=== PATIENT | male | born 1975 | race Caucasian/White ===

== ENCOUNTER → 2017-07-30 11:12 | Outpatient (CLI) | payer BC, SELFPAY ==
[2017-07-30 12:19] LABS: Absolute Lymphocyte Count 1.96 X10^3/ul (0.83-4.51); Absolute Neutrophil Count 6.6 X10^3/uL (2.0-7.7); Basophil# 0.05 X10^3/uL; Basophil% 0.5 % (0-1); Eosinophil# 0.17 X10^3/uL; Eosinophils% 1.8 % (0-5); Hematocrit 45.1 % (40-54); Hemoglobin 15.1 g/dl (13.0-16.5); Lymphocyte # 1.96 X10^3/ul (4.0); Lymphocyte % 20.8 % (19-41); Mean Corp Hgb Conc 33.5 g/gl (32-36); Mean Corpuscular Hgb 30.8 pg (27.0-32.0); Mean Corpuscular Volume 91.9 fL (80-94); Mean Platelet Vol. 10.2 fl (6.2-12.0); Monocyte# 0.69 X10^3/uL; Monocyte% 7.3 % (0-10); Neutrophil # 6.55 X10^3/uL (2.7-7.7); Neutrophil % 69.4 % (47-70); Platelet Count 218 K/mm3 (150-450); RBC Distribution Width CV 13.7 % (11.6-14.6); Red Blood Count 4.91 M/mm3 (4.6-6.2); White Blood Count 9.4 K/mm3 (4.4-11.0)
[2017-07-30 12:21] LABS: POSITIVE COUNT NO; POSITIVE DIFFERENTIAL NO
[2017-07-30 12:22] LABS: POSITIVE MORPHOLOGY NO
[2017-07-30 12:44] LABS: AST(SGOT) 10 U/L (15-37); Alanine Aminotransfer ALT/SGPT 36 U/L (16-61); Albumin, Serum 3.7 g/dL (3.2-5.0); Alkaline Phosphatase 63 U/L (45-117); Anion Gap 6 (5-15); BUN 19 mg/dL (7-18); BUN/Creat Ratio 18.3 RATIO (10-20); Calcium,Total 9.2 mg/dL (8.5-10.1); Chloride 102 mmol/L (98-107); Creatinine, Serum 1.04 mg/dL (0.70-1.30); EST Glomerular Filtration Rate 83 mL/min (>60); Est Glom Filt Rate - Afr Amer 100 mL/min (>60); Globulin 3.8 g/dL (2.2-4.2); Glucose 259 mg/dL (74-106); Protein, Total 7.5 g/dL (6.4-8.2); Sodium Level 138 mmol/L (136-145)
== END ==
PROVIDERS: Family Provider Family Medicine; PCP Family Medicine; Visit Provider Internal Medicine Rheumatology
DX: M06.80 Other specified rheumatoid arthritis, unspecified site (principal); I10 Essential (primary) hypertension; E11.9 Type 2 diabetes mellitus without complications; Z79.899 Other long term (current) drug therapy
CPT/HCPCS: 36415; 80053; 85025

== ENCOUNTER → 2017-10-10 09:49 | Outpatient (CLI) | payer BC, SELFPAY ==
[2017-10-10 11:53] LABS: Absolute Lymphocyte Count 1.67 X10^3/ul (0.83-4.51); Basophil# 0.03 X10^3/uL; Basophil% 0.4 % (0-1); Eosinophil# 0.23 X10^3/uL; Hematocrit 43.7 % (40-54); Hemoglobin 14.5 g/dl (13.0-16.5); Lymphocyte # 1.67 X10^3/ul (4.0); Lymphocyte % 21.9 % (19-41); Mean Corp Hgb Conc 33.2 g/gl (32-36); Mean Corpuscular Hgb 30.7 pg (27.0-32.0); Mean Corpuscular Volume 92.6 fL (80-94); Mean Platelet Vol. 9.8 fl (6.2-12.0); Monocyte# 0.71 X10^3/uL; Monocyte% 9.3 % (0-10); Neutrophil # 4.97 X10^3/uL (2.7-7.7); Neutrophil % 65.3 % (47-70); Platelet Count 246 K/mm3 (150-450); RBC Distribution Width SD 43.5 fl (35.1-43.9); Red Blood Count 4.72 M/mm3 (4.6-6.2); White Blood Count 7.6 K/mm3 (4.4-11.0)
[2017-10-10 11:58] LABS: POSITIVE COUNT NO; POSITIVE DIFFERENTIAL NO; POSITIVE MORPHOLOGY NO
[2017-10-10 12:16] LABS: ALB/GLOB Ratio 0.9 RATIO (0.9-2.4); AST(SGOT) 11 U/L (15-37); Alanine Aminotransfer ALT/SGPT 23 U/L (16-61); Albumin, Serum 3.6 g/dL (3.2-5.0); Alkaline Phosphatase 68 U/L (45-117); Anion Gap 7 (5-15); BUN 14 mg/dL (7-18); BUN/Creat Ratio 13.3 RATIO (10-20); Calcium,Total 9.4 mg/dL (8.5-10.1); Chloride 106 mmol/L (98-107); Creatinine, Serum 1.05 mg/dL (0.70-1.30); EST Glomerular Filtration Rate 82 mL/min (>60); Est Glom Filt Rate - Afr Amer 99 mL/min (>60); Globulin 3.8 g/dL (2.2-4.2); Glucose 152 mg/dL (74-106); Potassium 4.3 mmol/L (3.5-5.1); Protein, Total 7.4 g/dL (6.4-8.2); Sodium Level 140 mmol/L (136-145)
== END ==
PROVIDERS: Family Provider Family Medicine; PCP Family Medicine; Visit Provider Internal Medicine Rheumatology
DX: M06.00 Rheumatoid arthritis without rheumatoid factor, unspecified site (principal); I10 Essential (primary) hypertension; E11.9 Type 2 diabetes mellitus without complications; Z79.899 Other long term (current) drug therapy
CPT/HCPCS: 36415; 80053; 85025

== ENCOUNTER → 2018-01-11 07:14 | Outpatient (CLI) | payer BC, SELFPAY ==
[2018-01-11 11:29] LABS: Absolute Lymphocyte Count 1.45 X10^3/ul (0.83-4.51); Absolute Neutrophil Count 3.7 X10^3/uL (2.0-7.7); Basophil# 0.04 X10^3/uL; Basophil% 0.7 % (0-1); Eosinophil# 0.15 X10^3/uL; Eosinophils% 2.5 % (0-5); Hematocrit 45.8 % (40-54); Hemoglobin 15.4 g/dl (13.0-16.5); Lymphocyte # 1.45 X10^3/ul (4.0); Lymphocyte % 24.3 % (19-41); Mean Corp Hgb Conc 33.6 g/gl (32-36); Mean Corpuscular Hgb 30.9 pg (27.0-32.0); Mean Platelet Vol. 10.2 fl (6.2-12.0); Monocyte# 0.59 X10^3/uL; Monocyte% 9.9 % (0-10); Neutrophil # 3.73 X10^3/uL (2.7-7.7); Neutrophil % 62.4 % (47-70); Platelet Count 222 K/mm3 (150-450); RBC Distribution Width SD 43.2 fl (35.1-43.9); Red Blood Count 4.98 M/mm3 (4.6-6.2)
[2018-01-11 11:30] LABS: POSITIVE COUNT NO; POSITIVE DIFFERENTIAL NO; POSITIVE MORPHOLOGY NO
[2018-01-11 11:49] LABS: ALB/GLOB Ratio 0.9 RATIO (0.9-2.4); AST(SGOT) 25 U/L (15-37); Alanine Aminotransfer ALT/SGPT 48 U/L (16-61); Albumin, Serum 3.6 g/dL (3.2-5.0); Alkaline Phosphatase 55 U/L (45-117); Anion Gap 9 (5-15); BUN 22 mg/dL (7-18); BUN/Creat Ratio 20.2 RATIO (10-20); Calcium,Total 9.4 mg/dL (8.5-10.1); Chloride 105 mmol/L (98-107); Creatinine, Serum 1.09 mg/dL (0.70-1.30); EST Glomerular Filtration Rate 78 mL/min (>60); Est Glom Filt Rate - Afr Amer 94 mL/min (>60); Globulin 3.9 g/dL (2.2-4.2); Glucose 177 mg/dL (74-106); Potassium 4.4 mmol/L (3.5-5.1); Protein, Total 7.5 g/dL (6.4-8.2); Sodium Level 140 mmol/L (136-145)
== END ==
PROVIDERS: Family Provider Family Medicine; PCP Family Medicine; Visit Provider Internal Medicine Rheumatology
DX: M06.00 Rheumatoid arthritis without rheumatoid factor, unspecified site (principal); Z79.899 Other long term (current) drug therapy; I10 Essential (primary) hypertension; E11.9 Type 2 diabetes mellitus without complications
CPT/HCPCS: 36415; 80053; 85025

== ENCOUNTER → 2018-04-02 11:43 | Outpatient (CLI) | payer BC, SELFPAY ==
[2018-04-02 13:57] LABS: Absolute Lymphocyte Count 1.89 X10^3/ul (0.83-4.51); Absolute Neutrophil Count 4.9 X10^3/uL (2.0-7.7); Basophil# 0.06 X10^3/uL; Basophil% 0.8 % (0-1); Eosinophil# 0.17 X10^3/uL; Eosinophils% 2.2 % (0-5); Hematocrit 45.7 % (40-54); Hemoglobin 15.7 g/dl (13.0-16.5); Lymphocyte # 1.89 X10^3/ul (4.0); Lymphocyte % 24.6 % (19-41); Mean Corp Hgb Conc 34.4 g/gl (32-36); Mean Corpuscular Volume 90.3 fL (80-94); Monocyte# 0.65 X10^3/uL; Monocyte% 8.5 % (0-10); Neutrophil # 4.88 X10^3/uL (2.7-7.7); Neutrophil % 63.6 % (47-70); Platelet Count 242 K/mm3 (150-450); RBC Distribution Width CV 12.9 % (11.6-14.6); RBC Distribution Width SD 41.8 fl (35.1-43.9); Red Blood Count 5.06 M/mm3 (4.6-6.2); White Blood Count 7.7 K/mm3 (4.4-11.0)
[2018-04-02 13:59] LABS: POSITIVE COUNT NO; POSITIVE DIFFERENTIAL NO; POSITIVE MORPHOLOGY NO
[2018-04-02 14:20] LABS: ALB/GLOB Ratio 0.9 RATIO (0.9-2.4); AST(SGOT) 22 U/L (15-37); Alanine Aminotransfer ALT/SGPT 51 U/L (16-61); Albumin, Serum 3.7 g/dL (3.2-5.0); Alkaline Phosphatase 64 U/L (45-117); Anion Gap 9 (5-15); BUN 21 mg/dL (7-18); BUN/Creat Ratio 17.6 RATIO (10-20); Calcium,Total 9.5 mg/dL (8.5-10.1); Chloride 102 mmol/L (98-107); Creatinine, Serum 1.19 mg/dL (0.70-1.30); EST Glomerular Filtration Rate 70 mL/min (>60); Est Glom Filt Rate - Afr Amer 85 mL/min (>60); Globulin 4.1 g/dL (2.2-4.2); Glucose 163 mg/dL (74-106); Potassium 4.2 mmol/L (3.5-5.1); Protein, Total 7.8 g/dL (6.4-8.2); Sodium Level 138 mmol/L (136-145)
== END ==
PROVIDERS: Family Provider Family Medicine; PCP Family Medicine; Referring Provider Internal Medicine Rheumatology; Visit Provider Internal Medicine Rheumatology
DX: M06.00 Rheumatoid arthritis without rheumatoid factor, unspecified site (principal); I10 Essential (primary) hypertension; E11.9 Type 2 diabetes mellitus without complications; Z79.899 Other long term (current) drug therapy
CPT/HCPCS: 36415; 80053; 85025

== ENCOUNTER → 2018-04-29 15:20 | Outpatient (CLI) | payer BC, SELFPAY ==
[2018-04-29 17:58] LABS: Absolute Lymphocyte Count 2.13 X10^3/ul (0.83-4.51); Absolute Neutrophil Count 6.5 X10^3/uL (2.0-7.7); Basophil# 0.05 X10^3/uL; Basophil% 0.5 % (0-1); Eosinophil# 0.16 X10^3/uL; Eosinophils% 1.7 % (0-5); Hematocrit 45.3 % (40-54); Hemoglobin 15.2 g/dl (13.0-16.5); Lymphocyte # 2.13 X10^3/ul (4.0); Lymphocyte % 22.1 % (19-41); Mean Corp Hgb Conc 33.6 g/gl (32-36); Mean Corpuscular Hgb 30.5 pg (27.0-32.0); Mean Platelet Vol. 10.3 fl (6.2-12.0); Monocyte# 0.82 X10^3/uL; Monocyte% 8.5 % (0-10); Neutrophil # 6.46 X10^3/uL (2.7-7.7); Neutrophil % 66.9 % (47-70); Platelet Count 286 K/mm3 (150-450); RBC Distribution Width CV 13.1 % (11.6-14.6); RBC Distribution Width SD 42.8 fl (35.1-43.9); Red Blood Count 4.98 M/mm3 (4.6-6.2); White Blood Count 9.7 K/mm3 (4.4-11.0)
[2018-04-29 18:03] LABS: POSITIVE COUNT NO; POSITIVE DIFFERENTIAL NO; POSITIVE MORPHOLOGY NO
[2018-04-29 18:18] LABS: AST(SGOT) 13 U/L (15-37); Alanine Aminotransfer ALT/SGPT 37 U/L (16-61); Albumin, Serum 3.7 g/dL (3.2-5.0); Alkaline Phosphatase 70 U/L (45-117); Anion Gap 12 (5-15); BUN 17 mg/dL (7-18); BUN/Creat Ratio 13.9 RATIO (10-20); Bilirubin, Direct 0.08 mg/dL (0.00-0.30); Calcium,Total 9.3 mg/dL (8.5-10.1); Chloride 106 mmol/L (98-107); Cholesterol 241 mg/dL (200); Creatinine, Serum 1.22 mg/dL (0.70-1.30); EST Glomerular Filtration Rate 68 mL/min (>60); Est Glom Filt Rate - Afr Amer 83 mL/min (>60); Globulin 4.2 g/dL (2.2-4.2); Glucose 228 mg/dL (74-106); High Density Lipoprotein 36 mg/dL; Potassium 4.3 mmol/L (3.5-5.1); Protein, Total 7.9 g/dL (6.4-8.2); Sodium Level 139 mmol/L (136-145); Thyroid Stim Hormone (TSH) 0.94 uIU/mL (0.358-3.74); Triglycerides 370 mg/dL; Very Low Density Lipoprotein 74 mg/dL (5-40)
[2018-04-29 18:28] LABS: Microalbumin,Random Urine 58.5 mg/L (NO RANGE EST.)
== END ==
PROVIDERS: Family Provider Family Medicine; PCP Family Medicine; Visit Provider Family Medicine
DX: E11.9 Type 2 diabetes mellitus without complications (principal); R53.81 Other malaise; R53.83 Other fatigue
CPT/HCPCS: 36415; 80048; 80061; 80076; 82043; 82570; 83036; 84403; 84443; 85025

== ENCOUNTER → 2018-07-03 07:05 | Outpatient (CLI) | payer BC, SELFPAY ==
[2018-07-03 10:10] LABS: Absolute Lymphocyte Count 1.47 X10^3/ul (0.83-4.51); Absolute Neutrophil Count 3.4 X10^3/uL (2.0-7.7); Basophil# 0.05 X10^3/uL; Basophil% 0.9 % (0-1); Eosinophil# 0.22 X10^3/uL; Eosinophils% 3.8 % (0-5); Hemoglobin 15.5 g/dl (13.0-16.5); Lymphocyte # 1.47 X10^3/ul (4.0); Lymphocyte % 25.6 % (19-41); Mean Corp Hgb Conc 33.7 g/gl (32-36); Mean Corpuscular Hgb 30.7 pg (27.0-32.0); Mean Corpuscular Volume 91.1 fL (80-94); Mean Platelet Vol. 9.9 fl (6.2-12.0); Monocyte# 0.58 X10^3/uL; Monocyte% 10.1 % (0-10); Neutrophil # 3.41 X10^3/uL (2.7-7.7); Neutrophil % 59.3 % (47-70); POSITIVE COUNT NO; POSITIVE DIFFERENTIAL NO; POSITIVE MORPHOLOGY NO; Platelet Count 251 K/mm3 (150-450); RBC Distribution Width CV 13.2 % (11.6-14.6); RBC Distribution Width SD 42.9 fl (35.1-43.9); Red Blood Count 5.05 M/mm3 (4.6-6.2); White Blood Count 5.8 K/mm3 (4.4-11.0)
[2018-07-03 10:21] LABS: AST(SGOT) 18 U/L (15-37); Alanine Aminotransfer ALT/SGPT 56 U/L (16-61); Albumin, Serum 3.6 g/dL (3.2-5.0); Alkaline Phosphatase 61 U/L (45-117); Anion Gap 8 (5-15); BUN 14 mg/dL (7-18); BUN/Creat Ratio 12.8 RATIO (10-20); Chloride 105 mmol/L (98-107); Creatinine, Serum 1.09 mg/dL (0.70-1.30); EST Glomerular Filtration Rate 78 mL/min (>60); Est Glom Filt Rate - Afr Amer 94 mL/min (>60); Globulin 3.5 g/dL (2.2-4.2); Glucose 232 mg/dL (74-106); Potassium 4.2 mmol/L (3.5-5.1); Protein, Total 7.1 g/dL (6.4-8.2); Sodium Level 141 mmol/L (136-145)
--- OUTSIDE RECORDS SUMMARY | 2018-09-06 22:19 | XMS RPT_ITS ---
:1975 Author Organization OHIP Care Team Providers Name Role Phone Vanesa Marion Attending Unavailable Vanesa Marion Referring Unavailable Tessa Landrum Primary Care Unavailable Vnaesa Marion Attending Unavailable Vanesa Marion Referring Unavailable Tessa Landrum Primary Care Unavailable Vanesa Marion Attending Unavailable Tessa Landrum Primary Care Unavailable Vanesa Marion Attending Unavailable Sanam Vanesa Referring Unavailable Tessa Landrum Primary Care Unavailable Sanam Vanesa Attending Unavailable Sanam Vanesa Referring Unavailable Tessa Landrum Primary Care Unavailable Tessa Landrum Attending Unavailable Tessa Landrum Primary Care Unavailable PROBLEMS PROBLEMS DATE TYPE CONDITION / CODE ATTENDING STATUS SOURCE 07/03/2018 Unknown M06.00 - Rheumatoid Vanesa Marion Active [place] arthritis without Community rheumatoid factor, Hospital unspecified site / Repository M06.00(ICD-10) 07/03/2018 Unknown Z79.899 - Other Vanesa Marion Active [place] intermediate frame tender (current) [facility] drug therapy / Hospital Z79.899(ICD-10) Repository 07/03/2018 Unknown I10 - Essential Vanesa Marion Active [place] (primary) [facility] hypertension / Hospital I10(ICD-10) Repository 07/03/2018 Unknown E11.9 - Type 2 Vanesa Marion Active [place] diabetes mellitus [facility] without Hospital complications / Repository E11.9(ICD-10) PROCEDURES PROCEDURES No Procedure Records FoundRESULTS RESULTS CBC W/DIFF, AUTOMATED Collected: 07/03/2018 Status: F Source: [place] 7:11 AM [facility] HOSPITAL REPOSITORY TYPE CODE TESTS RESULT OUT OF RANGE REFERENCE UNITS LAB L100.1000 4.4-11.0 K/mm3 Normal WBC 5.8 LAB L100.1200 4.6-6.2 M/mm3 Normal RBC 5.05 LAB L100.1300 13.0-16.5 g/dl Normal HGB 15.5 LAB L100.1400 40-54 % Normal HCT 46.0 LAB L100.1500 80-94 fL Normal MCV 91.1 LAB L100.1600 27.0-32.0 pg Normal MCH 30.7 LAB L100.1700 32-36 g/gl Normal MCHC 33.7 LAB L100.1810 11.6-14.6 % Normal RDW CV 13.2 LAB L100.1820 35.1-43.9 fl Normal RDW SD 42.9 LAB L100.1900 150-450 K/mm3 Normal PLT 251 LAB L100.2000 6.2-12.0 fl Normal MPV 9.9 LAB L100.2100 47-70 % Normal NEUT% 59.3 LAB L100.2200 19-41 % Normal LY% 25.6 LAB L100.2300 0-10 % High MONO% 10.1 LAB L100.2400 0-5 % Normal EO% 3.8 LAB L100.2500 0-1 % Normal BASO% 0.9 LAB L100.2550 0.0-0.9 % Normal IM GRAN % 0.300 Result Comment: IG% - Immature Granulocytes (promyelocytes, myelocytes and metamyelocytes) > 1% indicates that a LEFT SHIFT is Present. LAB L100.2620 2.0-7.7 X10 3/uL Normal Absolute Neut 3.4 LAB L100.2720 0.83-4.51 X10 3/ul Normal Absolute Lymph 1.47 Performed By: #### L100.0100 #### [facility] [address] [place], [address] COMPREHENSIVE METABOLIC Collected: 07/03/2018 Status: F Source: [facility] 7:11 AM [facility] REPOSITORY TYPE CODE TESTS RESULT OUT OF RANGE REFERENCE UNITS LAB L501.0100 74-106 mg/dL High GLU 232 Result Comment: Glucose result greater than or equal to 200 mg/dL suggests DIABETES MELLITUS per A.D.A. criteria. Please note revised GLUCOSE reference range effective 2017. LAB L501.1000 7-18 mg/dL Normal BUN 14 LAB L501.1100 0.70-1.30 mg/dL Normal CREAT,SERUM 1.09 Result Comment: The validity of the calculated GFR AND GFRAA in patients over 70 years has not been determined. Clinical correlation is essential. LAB L501.1110 >60 mL/min Normal EST GFR 78 Result Comment: Non- GFR Calc LAB L501.1115 >60 mL/min Normal EST GFR - AA 94 Result Comment: GFR Calc LAB L501.1300 10-20 RATIO Normal BUN/CRE 12.8 LAB L501.1500 6.4-8.2 g/dL T Normal PROT 7.1 LAB L501.1800 3.2-5.0 g/dL Normal ALB 3.6 LAB L501.1950 2.2-4.2 g/dL Normal GLOB 3.5 LAB L501.2000 0.9-2.4 RATIO Normal A/G 1.0 LAB L501.2200 8.5-10.1 mg/dL CA Normal 9.0 LAB L501.4100 15-37 U/L Normal AST 18 LAB L501.4305 45-117 U/L Normal ALK P 61 LAB L501.4405 16-61 U/L Normal ALT 56 LAB L501.4600 0.20-1.00 mg/dL T Normal BILI 0.40 LAB L501.5300 136-145 mmol/L NA Normal 141 LAB L501.5600 3.5-5.1 mmol/L K Normal 4.2 LAB L501.5900 98-107 mmol/L CL Normal 105 LAB L501.6100 21.0-32.0 mmol/L Normal CO2 28.0 LAB L501.6200 5-15 Normal GAP 8 Performed By: #### L500.4050 #### [facility] [address] [place], [address] CBC W/DIFF, AUTOMATED Collected: 04/29/2018 Status: F Source: [facility] 3:23 PM [facility] REPOSITORY TYPE CODE TESTS RESULT OUT OF RANGE REFERENCE UNITS LAB L100.1000 4.4-11.0 K/mm3 Normal WBC 9.7 LAB L100.1200 4.6-6.2 M/mm3 Normal RBC 4.98 LAB L100.1300 13.0-16.5 g/dl Normal HGB 15.2 LAB L100.1400 40-54 % Normal HCT 45.3 LAB L100.1500 80-94 fL Normal MCV 91.0 LAB L100.1600 27.0-32.0 pg Normal MCH 30.5 LAB L100.1700 32-36 g/gl Normal MCHC 33.6 LAB L100.1810 11.6-14.6 % Normal RDW CV 13.1 LAB L100.1820 35.1-43.9 fl Normal RDW SD 42.8 LAB L100.1900 150-450 K/mm3 Normal PLT 286 LAB L100.2000 6.2-12.0 fl Normal MPV 10.3 LAB L100.2100 47-70 % Normal NEUT% 66.9 LAB L100.2200 19-41 % Normal LY% 22.1 LAB L100.2300 0-10 % Normal MONO% 8.5 LAB L100.2400 0-5 % Normal EO% 1.7 LAB L100.2500 0-1 % Normal BASO% 0.5 LAB L100.2550 0.0-0.9 % Normal IM GRAN % 0.300 Result Comment: IG% - Immature Granulocytes (promyelocytes, myelocytes and metamyelocytes) > 1% indicates that a LEFT SHIFT is Present. LAB L100.2620 2.0-7.7 X10 3/uL Normal Absolute Neut 6.5 LAB L100.2720 0.83-4.51 X10 3/ul Normal Absolute Lymph 2.13 Performed By: #### L100.0100 #### [facility] [address] [place], [place], [address] HEMOGLOBIN A1C Collected: 04/29/2018 Status: F Source: [facility] 3:23 PM [facility] REPOSITORY TYPE CODE TESTS RESULT OUT OF RANGE REFERENCE UNITS LAB L501.9985 4.2-6.3 % High HGB A1C 9.0 Performed By: #### L501.9985 #### [facility] [address] [place], [address] TESTOSTERONE, SERUM TOTAL Collected: 04/29/2018 Status: F Source: [facility] 3:23 PM [facility] REPOSITORY TYPE CODE TESTS RESULT OUT OF REFERENCE UNITS RANGE LAB L509.3000 ng/dL Testosterone Normal 355.28 Result Comment: NORMAL REFERENCE RANGES MALE AGE <50 123.06 - 813.86 ng/dL MALE AGE >50 89.98 - 780.10 ng/dL FEMALE PREMENOPAUSE AGE 21 - 60 9.01 - 47.94 ng/dL FEMALE POSTMENOPAUSE AGE 45 - 89 <7.00 - 45.62 ng/dL REFERENCE RANGE AND METHODOLOGY CHANGED 06/06/2017 Performed By: #### L509.3000 #### [facility] [address] [place], [place], [address] BASIC METABOLIC Collected: 04/29/2018 Status: F Source: [place] PROFILE (BMP) 3:23 PM [facility] REPOSITORY TYPE CODE TESTS RESULT OUT OF RANGE REFERENCE UNITS LAB L501.0100 74-106 mg/dL High GLU 228 Result Comment: Glucose result greater than or equal to 200 mg/dL suggests DIABETES MELLITUS per A.D.A. criteria. Please note revised GLUCOSE reference range effective 2017. LAB L501.1000 7-18 mg/dL Normal BUN 17 LAB L501.1100 0.70-1.30 mg/dL Normal CREAT,SERUM 1.22 Result Comment: The validity of the calculated GFR AND GFRAA in patients over 70 years has not been determined. Clinical correlation is essential. LAB L501.1110 >60 mL/min Normal EST GFR 68 Result Comment: Non- GFR Calc LAB L501.1115 >60 mL/min Normal EST GFR - AA 83 Result Comment: GFR Calc LAB L501.1300 10-20 RATIO Normal BUN/CRE 13.9 LAB L501.2200 8.5-10.1 mg/dL CA Normal 9.3 LAB L501.5300 136-145 mmol/L NA Normal 139 LAB L501.5600 3.5-5.1 mmol/L K Normal 4.3 Result Comment: Slight Hemolysis, Result may be falsely increased. LAB L501.5900 98-107 mmol/L Normal CL 106 LAB L501.6100 21.0-32.0 mmol/L Normal CO2 21.0 LAB L501.6200 5-15 Normal GAP 12 Performed By: #### L500.2500, L500.3400, L500.4100, L501.9520 #### [facility] [address] [place], [address] LIVER PROFILE Collected: 04/29/2018 Status: F Source: [facility] 3:23 PM [facility] REPOSITORY TYPE CODE TESTS RESULT OUT OF RANGE REFERENCE UNITS LAB L501.1500 6.4-8.2 g/dL Normal T PROT 7.9 LAB L501.1800 3.2-5.0 g/dL Normal ALB 3.7 LAB L501.1950 2.2-4.2 g/dL Normal GLOB 4.2 LAB L501.4100 15-37 U/L Low AST 13 Result Comment: Slight Hemolysis, Result may be falsely increased. LAB L501.4305 45-117 U/L Normal ALK P 70 LAB L501.4405 16-61 U/L Normal ALT 37 LAB L501.4600 0.20-1.00 mg/dL Normal T BILI 0.40 LAB L501.4700 0.00-0.30 mg/dL Normal D BILI 0.08 Performed By: #### L500.2500, L500.3400, L500.4100, L501.9520 #### [facility] [address] [place], [place], [id number] LIPID PROFILE Collected: 04/29/2018 Status: F Source: [place] 3:23 PM [facility] REPOSITORY TYPE CODE TESTS RESULT OUT OF RANGE REFERENCE UNITS LAB L501.4900 200 mg/dL High CHOL 241 Result Comment: <200 mg/dL Desirable 200-240 mg/dL Borderline >240 mg/dL High Risk LAB L501.5000 mg/dL High TRIG 370 Result Comment: The drugs N-Acetylcysteine and Metamizole may falsely depress this assay. Serum Triglycerides Reference Interval Normal <150 mg/dL Borderline high 150 - 199 mg/dL High 200 - 499 mg/dL Very High > or = 500 mg/dL LAB L501.6400 mg/dL Low HDL 36 Result Comment: The drugs N-Acetylcysteine and Metamizole may falsely depress this assay. Reference Range HDL <40 mg/dL Low HDL Cholesterol HDL >or= 60 mg/dL High HDL Cholesterol LAB L501.6500 0-130 mg/dL High LDL 131 LAB L501.6600 5-40 mg/dL High VLDL 74 Performed By: #### L500.2500, L500.3400, L500.4100, L501.9520 #### [facility] [address] [place], [place], [id number] THYROID STIM HORMONE Collected: 04/29/2018 Status: F Source: [place] (TSH) 3:23 PM [facility] REPOSITORY TYPE CODE TESTS RESULT OUT OF RANGE REFERENCE UNITS LAB L501.9520 0.358-3.74 uIU/mL Normal TSH 0.94 Performed By: #### L500.2500, L500.3400, L500.4100, L501.9520 #### [facility] [address] [place], [place], [id number] MICROALB:CREAT Collected: 04/29/2018 Status: F Source: [facility] RATIO,RANDOM UR 3:23 PM [facility] REPOSITORY TYPE CODE TESTS RESULT OUT OF RANGE REFERENCE UNITS LAB L501.1200 NO RANGE EST. mg/dL Normal UR CREAT 130.00 LAB L502.0500 NO RANGE EST. mg/L Normal 58.5 MICROALBUMIN ,UR LAB L502.0600 <30 mg/g CRE mg/g CRE High 45.0 MALB:CREAT Performed By: #### L502.0250 #### [facility] [place], [address] CBC W/DIFF, AUTOMATED Collected: 04/02/2018 Status: F Source: [place] 11:47 AM [facility] REPOSITORY TYPE CODE TESTS RESULT OUT OF RANGE REFERENCE UNITS LAB L100.1000 4.4-11.0 K/mm3 Normal WBC 7.7 LAB L100.1200 4.6-6.2 M/mm3 Normal RBC 5.06 LAB L100.1300 13.0-16.5 g/dl Normal HGB 15.7 LAB L100.1400 40-54 % Normal HCT 45.7 LAB L100.1500 80-94 fL Normal MCV 90.3 LAB L100.1600 27.0-32.0 pg Normal MCH 31.0 LAB L100.1700 32-36 g/gl Normal MCHC 34.4 LAB L100.1810 11.6-14.6 % Normal RDW CV 12.9 LAB L100.1820 35.1-43.9 fl Normal RDW SD 41.8 LAB L100.1900 150-450 K/mm3 Normal PLT 242 LAB L100.2000 6.2-12.0 fl Normal MPV 10.0 LAB L100.2100 47-70 % Normal NEUT% 63.6 LAB L100.2200 19-41 % Normal LY% 24.6 LAB L100.2300 0-10 % Normal MONO% 8.5 LAB L100.2400 0-5 % Normal EO% 2.2 LAB L100.2500 0-1 % Normal BASO% 0.8 LAB L100.2550 0.0-0.9 % Normal IM GRAN % 0.300 Result Comment: IG% - Immature Granulocytes (promyelocytes, myelocytes and metamyelocytes) > 1% indicates that a LEFT SHIFT is Present. LAB L100.2620 2.0-7.7 X10 3/uL Normal Absolute Neut 4.9 LAB L100.2720 0.83-4.51 X10 3/ul Normal Absolute Lymph 1.89 Performed By: #### L100.0100 #### [facility] [address] [place], [address] COMPREHENSIVE METABOLIC Collected: 04/02/2018 Status: F Source: [place] 11:47 AM [facility] REPOSITORY TYPE CODE TESTS RESULT OUT OF RANGE REFERENCE UNITS LAB L501.0100 74-106 mg/dL High GLU 163 Result Comment: Fasting Glucose result greater than or equal to 126 mg/dL suggests DIABETES MELLITUS per A.D.A. criteria. Please note revised GLUCOSE reference range effective 2017. LAB L501.1000 7-18 mg/dL High BUN 21 LAB L501.1100 0.70-1.30 mg/dL Normal CREAT,SERUM 1.19 Result Comment: The validity of the calculated GFR AND GFRAA in patients over 70 years has not been determined. Clinical correlation is essential. LAB L501.1110 >60 mL/min Normal EST GFR 70 Result Comment: Non- GFR Calc LAB L501.1115 >60 mL/min Normal EST GFR - AA 85 Result Comment: GFR Calc LAB L501.1300 10-20 RATIO Normal BUN/CRE 17.6 LAB L501.1500 6.4-8.2 g/dL T Normal PROT 7.8 LAB L501.1800 3.2-5.0 g/dL Normal ALB 3.7 LAB L501.1950 2.2-4.2 g/dL Normal GLOB 4.1 LAB L501.2000 0.9-2.4 RATIO Normal A/G 0.9 LAB L501.2200 8.5-10.1 mg/dL CA Normal 9.5 LAB L501.4100 15-37 U/L Normal AST 22 LAB L501.4305 45-117 U/L Normal ALK P 64 LAB L501.4405 16-61 U/L Normal ALT 51 LAB L501.4600 0.20-1.00 mg/dL T Normal BILI 0.50 LAB L501.5300 136-145 mmol/L NA Normal 138 LAB L501.5600 3.5-5.1 mmol/L K Normal 4.2 LAB L501.5900 98-107 mmol/L CL Normal 102 LAB L501.6100 21.0-32.0 mmol/L Normal CO2 27.0 LAB L501.6200 5-15 Normal GAP 9 Performed By: #### L500.4050 #### [facility] [place], [address] CBC W/DIFF, AUTOMATED Collected: 01/11/2018 Status: F Source: [facility] 7:17 AM [facility] REPOSITORY TYPE CODE TESTS RESULT OUT OF RANGE REFERENCE UNITS LAB L100.1000 4.4-11.0 K/mm3 Normal WBC 6.0 LAB L100.1200 4.6-6.2 M/mm3 Normal RBC 4.98 LAB L100.1300 13.0-16.5 g/dl Normal HGB 15.4 LAB L100.1400 40-54 % Normal HCT 45.8 LAB L100.1500 80-94 fL Normal MCV 92.0 LAB L100.1600 27.0-32.0 pg Normal MCH 30.9 LAB L100.1700 32-36 g/gl Normal MCHC 33.6 LAB L100.1810 11.6-14.6 % Normal RDW CV 13.0 LAB L100.1820 35.1-43.9 fl Normal RDW SD 43.2 LAB L100.1900 150-450 K/mm3 Normal PLT 222 LAB L100.2000 6.2-12.0 fl Normal MPV 10.2 LAB L100.2100 47-70 % Normal NEUT% 62.4 LAB L100.2200 19-41 % Normal LY% 24.3 LAB L100.2300 0-10 % Normal MONO% 9.9 LAB L100.2400 0-5 % Normal EO% 2.5 LAB L100.2500 0-1 % Normal BASO% 0.7 LAB L100.2550 0.0-0.9 % Normal IM GRAN % 0.200 Result Comment: IG% - Immature Granulocytes (promyelocytes, myelocytes and metamyelocytes) > 1% indicates that a LEFT SHIFT is Present. LAB L100.2620 2.0-7.7 X10 3/uL Normal Absolute Neut 3.7 LAB L100.2720 0.83-4.51 X10 3/ul Normal Absolute Lymph 1.45 Performed By: #### L100.0100 #### [facility] [address] [place], [place], [address] COMPREHENSIVE METABOLIC Collected: 01/11/2018 Status: F Source: [place] [facility] 7:17 AM [facility] REPOSITORY TYPE CODE TESTS RESULT OUT OF RANGE REFERENCE UNITS LAB L501.0100 74-106 mg/dL High GLU 177 Result Comment: Fasting Glucose result greater than or equal to 126 mg/dL suggests DIABETES MELLITUS per A.D.A. criteria. Please note revised GLUCOSE reference range effective 2017. LAB L501.1000 7-18 mg/dL High BUN 22 LAB L501.1100 0.70-1.30 mg/dL Normal CREAT,SERUM 1.09 Result Comment: The validity of the calculated GFR AND GFRAA in patients over 70 years has not been determined. Clinical correlation is essential. LAB L501.1110 >60 mL/min Normal EST GFR 78 Result Comment: Non- GFR Calc LAB L501.1115 >60 mL/min Normal EST GFR - AA 94 Result Comment: GFR Calc LAB L501.1300 10-20 RATIO High BUN/CRE 20.2 LAB L501.1500 6.4-8.2 g/dL T Normal PROT 7.5 LAB L501.1800 3.2-5.0 g/dL Normal ALB 3.6 LAB L501.1950 2.2-4.2 g/dL Normal GLOB 3.9 LAB L501.2000 0.9-2.4 RATIO Normal A/G 0.9 LAB L501.2200 8.5-10.1 mg/dL CA Normal 9.4 LAB L501.4100 15-37 U/L Normal AST 25 LAB L501.4305 45-117 U/L Normal ALK P 55 LAB L501.4405 16-61 U/L Normal ALT 48 LAB L501.4600 0.20-1.00 mg/dL T Normal BILI 0.40 LAB L501.5300 136-145 mmol/L NA Normal 140 LAB L501.5600 3.5-5.1 mmol/L K Normal 4.4 LAB L501.5900 98-107 mmol/L CL Normal 105 LAB L501.6100 21.0-32.0 mmol/L Normal CO2 26.0 LAB L501.6200 5-15 Normal GAP 9 Performed By: #### L500.4050 #### [facility] [place], [address] CBC W/DIFF, AUTOMATED Collected: 10/10/2017 Status: F Source: [facility] 9:55 AM [facility] REPOSITORY TYPE CODE TESTS RESULT OUT OF RANGE REFERENCE UNITS LAB L100.1000 4.4-11.0 K/mm3 Normal WBC 7.6 LAB L100.1200 4.6-6.2 M/mm3 Normal RBC 4.72 LAB L100.1300 13.0-16.5 g/dl Normal HGB 14.5 LAB L100.1400 40-54 % Normal HCT 43.7 LAB L100.1500 80-94 fL Normal MCV 92.6 LAB L100.1600 27.0-32.0 pg Normal MCH 30.7 LAB L100.1700 32-36 g/gl Normal MCHC 33.2 LAB L100.1810 11.6-14.6 % Normal RDW CV 13.0 LAB L100.1820 35.1-43.9 fl Normal RDW SD 43.5 LAB L100.1900 150-450 K/mm3 Normal PLT 246 LAB L100.2000 6.2-12.0 fl Normal MPV 9.8 LAB L100.2100 47-70 % Normal NEUT% 65.3 LAB L100.2200 19-41 % Normal LY% 21.9 LAB L100.2300 0-10 % Normal MONO% 9.3 LAB L100.2400 0-5 % Normal EO% 3.0 LAB L100.2500 0-1 % Normal BASO% 0.4 LAB L100.2550 0.0-0.9 % Normal IM GRAN % 0.100 Result Comment: IG% - Immature Granulocytes (promyelocytes, myelocytes and metamyelocytes) > 1% indicates that a LEFT SHIFT is Present. LAB L100.2620 2.0-7.7 X10 3/uL Normal Absolute Neut 5.0 LAB L100.2720 0.83-4.51 X10 3/ul Normal Absolute Lymph 1.67 Performed By: #### L100.0100 #### [facility] [address] [place], [address] COMPREHENSIVE METABOLIC Collected: 10/10/2017 Status: F Source: [place] [facility] 9:55 AM [facility] REPOSITORY TYPE CODE TESTS RESULT OUT OF RANGE REFERENCE UNITS LAB L501.0100 74-106 mg/dL High GLU 152 Result Comment: Fasting Glucose result greater than or equal to 126 mg/dL suggests DIABETES MELLITUS per A.D.A. criteria. Please note revised GLUCOSE reference range effective 2017. LAB L501.1000 7-18 mg/dL Normal BUN 14 LAB L501.1100 0.70-1.30 mg/dL Normal CREAT,SERUM 1.05 Result Comment: The validity of the calculated GFR AND GFRAA in patients over 70 years has not been determined. Clinical correlation is essential. LAB L501.1110 >60 mL/min Normal EST GFR 82 Result Comment: Non- GFR Calc LAB L501.1115 >60 mL/min Normal EST GFR - AA 99 Result Comment: GFR Calc LAB L501.1300 10-20 RATIO Normal BUN/CRE 13.3 LAB L501.1500 6.4-8.2 g/dL T Normal PROT 7.4 LAB L501.1800 3.2-5.0 g/dL Normal ALB 3.6 LAB L501.1950 2.2-4.2 g/dL Normal GLOB 3.8 LAB L501.2000 0.9-2.4 RATIO Normal A/G 0.9 LAB L501.2200 8.5-10.1 mg/dL CA Normal 9.4 LAB L501.4100 15-37 U/L Low AST 11 LAB L501.4305 45-117 U/L Normal ALK P 68 LAB L501.4405 16-61 U/L Normal ALT 23 LAB L501.4600 0.20-1.00 mg/dL T Normal BILI 0.30 LAB L501.5300 136-145 mmol/L NA Normal 140 LAB L501.5600 3.5-5.1 mmol/L K Normal 4.3 LAB L501.5900 98-107 mmol/L CL Normal 106 LAB L501.6100 21.0-32.0 mmol/L Normal CO2 27.0 LAB L501.6200 5-15 Normal GAP 7 Performed By: #### L500.4050 #### [facility] [address] [place], [place], [id number] CBC W/DIFF, AUTOMATED Collected: 07/30/2017 Status: F Source: [facility] 11:19 AM [facility] REPOSITORY TYPE CODE TESTS RESULT OUT OF RANGE REFERENCE UNITS LAB L100.1000 4.4-11.0 K/mm3 Normal WBC 9.4 LAB L100.1200 4.6-6.2 M/mm3 Normal RBC 4.91 LAB L100.1300 13.0-16.5 g/dl Normal HGB 15.1 LAB L100.1400 40-54 % Normal HCT 45.1 LAB L100.1500 80-94 fL Normal MCV 91.9 LAB L100.1600 27.0-32.0 pg Normal MCH 30.8 LAB L100.1700 32-36 g/gl Normal MCHC 33.5 LAB L100.1810 11.6-14.6 % Normal RDW CV 13.7 LAB L100.1820 35.1-43.9 fl High RDW SD 45.0 LAB L100.1900 150-450 K/mm3 Normal PLT 218 LAB L100.2000 6.2-12.0 fl Normal MPV 10.2 LAB L100.2100 47-70 % Normal NEUT% 69.4 LAB L100.2200 19-41 % Normal LY% 20.8 LAB L100.2300 0-10 % Normal MONO% 7.3 LAB L100.2400 0-5 % Normal EO% 1.8 LAB L100.2500 0-1 % Normal BASO% 0.5 LAB L100.2550 0.0-0.9 % Normal IM GRAN % 0.200 Result Comment: IG% - Immature Granulocytes (promyelocytes, myelocytes and metamyelocytes) > 1% indicates that a LEFT SHIFT is Present. LAB L100.2620 2.0-7.7 X10 3/uL Normal Absolute Neut 6.6 LAB L100.2720 0.83-4.51 X10 3/ul Normal Absolute Lymph 1.96 Performed By: #### L100.0100 #### [facility] [address] [place], [address] COMPREHENSIVE METABOLIC Collected: 07/30/2017 Status: F Source: [facility] 11:19 AM [facility] REPOSITORY TYPE CODE TESTS RESULT OUT OF RANGE REFERENCE UNITS LAB L501.0100 74-106 mg/dL High GLU 259 Result Comment: Glucose result greater than or equal to 200 mg/dL suggests DIABETES MELLITUS per A.D.A. criteria. Please note revised GLUCOSE reference range effective 2017. LAB L501.1000 7-18 mg/dL High BUN 19 LAB L501.1100 0.70-1.30 mg/dL Normal CREAT,SERUM 1.04 Result Comment: The validity of the calculated GFR AND GFRAA in patients over 70 years has not been determined. Clinical correlation is essential. LAB L501.1110 >60 mL/min Normal EST GFR 83 Result Comment: Non- GFR Calc LAB L501.1115 >60 mL/min Normal EST GFR - AA 100 Result Comment: GFR Calc LAB L501.1300 10-20 RATIO Normal BUN/CRE 18.3 LAB L501.1500 6.4-8.2 g/dL T Normal PROT 7.5 LAB L501.1800 3.2-5.0 g/dL Normal ALB 3.7 LAB L501.1950 2.2-4.2 g/dL Normal GLOB 3.8 LAB L501.2000 0.9-2.4 RATIO Normal A/G 1.0 LAB L501.2200 8.5-10.1 mg/dL CA Normal 9.2 LAB L501.4100 15-37 U/L Low AST 10 LAB L501.4305 45-117 U/L Normal ALK P 63 LAB L501.4405 16-61 U/L Normal ALT 36 Result Comment: Please note revised ALT reference range effective 2017. LAB L501.4600 0.20-1.00 mg/dL Normal T BILI 0.40 LAB L501.5300 136-145 mmol/L Normal NA 138 LAB L501.5600 3.5-5.1 mmol/L Normal K 4.0 LAB L501.5900 98-107 mmol/L Normal CL 102 LAB L501.6100 21.0-32.0 mmol/L Normal CO2 30.0 LAB L501.6200 5-15 Normal GAP 6 Performed By: #### L500.4050 #### [facility] [address] [place], [address] ALLERGIES ALLERGIES DATE TYPE / CODE NAME / CODE REACTION SEVERITY SOURCE 05/04/2017 Drug No Known Unknown [facility] Allergy/4160 Allergies/F00 [facility] [address](SNOMED [id number](RXNOR Repository CT) M) ENCOUNTERS ENCOUNTERS ADMIT/DISCHARGE ACCOUNT ADMITTING ENCOUNTER LOCATION SOURCE NUMBER CLASS 07/03/2018 [id number] Ambulatory [place] 2 [facility] ing:MTLAB Repository 04/29/2018 [id number] Ambulatory [place] 2 [facility] ing:MFPLAB Repository 04/02/2018 [id number] Ambulatory [place] 6 [facility] ing:MTLAB Repository 01/11/2018 [id number] Ambulatory [place] 7 [facility] ing:MTLAB Repository 10/10/2017 [id number] Ambulatory Dottie Dottie 7 [facility] ing:MTLAB Repository 07/30/2017 [id number] Ambulatory [place]ottie [place] 4 [facility] ing:MTLAB Repository PAYERS PAYERS ENCOUNTER GUARANTOR PAYER SUBSCRIBER SOURCE 07/03/2018 TELLY L Primary TELLY L Dottie [id number] SPARR Insurance:ANTHEMPolic [place] Number: [id number] Hospital 78690Jon: 330 [id number] Repository [phone] () Date:8160-02-80AU [address] [place] [address] [id number]: 07/03/2018 Secondary NOT GIVENUNK [place] Insurance:SELF PAY [facility] Number: Effective Repository Date:2018-07-03 04/29/2018 TELLY L Primary TELLY L [place] [id number] [place] Insurance:ANTHEMPolic [place]UMBERDOB: [place] Number: [id number] Hospital 29776Nzl: ([phone]) [id number] Repository [phone] () Date:2880-22-77IS [id number] [place] [address] 33694PC: 04/29/2018 Secondary NOT GIVENUNK [place] Insurance:SELF PAY [facility] Number: Effective Repository Date:2018-04-29 04/02/2018 TELLY L Primary TELLY L [place] [id number] [place] Insurance:ANTHEMPolic [place]: [id number] Hospital [id number]: (700) [id number] Repository [phone] () Date:1038-63-57BM [address] [place] [address] [id number]: 04/02/2018 Secondary NOT GIVENUNK [place] Insurance:SELF PAY [facility] Number: Effective Repository Date:2018-04-02 01/11/2018 TELLY L Primary TELLY L Dottie [id number] [place] Insurance:ANTHEMPolic [place]: [id number] Hospital 74366Blb: ([phone]) [id number] Repository [phone] () Date:8187-53-92ES [id number] [place] [address] 95[address]WA: 01/11/2018 Secondary NOT GIVENUNK [place] Insurance:SELF PAY [facility] Number: Effective Repository Date:2018-01-11 10/10/2017 Telly [id number] Primary Telly GumberDOB: [place], Insurance:ANTHEMPolic [id number] [facility] [address]Vha: y Number: [facility] [id number] Repository (HP) Date:[id number] [id number] [place] [id number]: 10/10/2017 Secondary NOT GIVENUNK [place] Insurance:SELF PAY [facility] Number: Effective Repository Date:2017-10-10 07/30/2017 Telly [id number] Primary Telly GumberDOB: [place], Insurance:ANTHEMPolic [id number] [facility] [address]Njr: y Number: [facility] [id number] Repository (HP) Date:[id number], [place] [address]GM: 07/30/2017 Secondary NOT GIVENUNK Dottie Insurance:SELF PAY [facility] Number: Effective Repository Date:2017-07-30
== END ==
PROVIDERS: Family Provider Family Medicine; PCP Family Medicine; Referring Provider Internal Medicine Rheumatology; Visit Provider Internal Medicine Rheumatology
DX: M06.00 Rheumatoid arthritis without rheumatoid factor, unspecified site (principal); I10 Essential (primary) hypertension; E11.9 Type 2 diabetes mellitus without complications; Z79.899 Other long term (current) drug therapy
CPT/HCPCS: 36415; 80053; 85025

== ENCOUNTER → 2018-09-25 | Outpatient (CLI) | payer BC, SELFPAY ==
--- NOTE | 2018-09-25 15:56 | RAD_ITS ---
STUDY: X-RAY - RIGHT WRIST REASON FOR EXAM: Pain and bruising status post injury. TECHNIQUE: 3 view(s) of the wrist were obtained. COMPARISON: None. FINDINGS: Normal visualized distal radius and ulna. Normal radiocarpal articulation. Normal distal radioulnar articulation. Normal carpal bones. Normal carpal articulations. Normal carpometacarpal articulation of the thumb. Normal second through fifth carpometacarpal articulations. Normal visualized metacarpal bones. The soft tissue structures are unremarkable. RAD/Wrist min 3 Views IMPRESSION: Normal x-ray examination of the right wrist. Electronically Signed: Arvin Powell MD at 15:57 EDT Tel , Service support ,
[2018-09-25 17:51] LABS: Absolute Lymphocyte Count 2.27 X10^3/ul (0.83-4.51); Absolute Neutrophil Count 5.6 X10^3/uL (2.0-7.7); Basophil# 0.05 X10^3/uL; Basophil% 0.6 % (0-1); Eosinophil# 0.13 X10^3/uL; Eosinophils% 1.5 % (0-5); Hematocrit 45.1 % (40-54); Lymphocyte # 2.27 X10^3/ul (4.0); Mean Corp Hgb Conc 33.3 g/gl (32-36); Mean Corpuscular Hgb 30.7 pg (27.0-32.0); Mean Corpuscular Volume 92.4 fL (80-94); Mean Platelet Vol. 9.8 fl (6.2-12.0); Monocyte# 0.71 X10^3/uL; Monocyte% 8.1 % (0-10); Neutrophil # 5.56 X10^3/uL (2.7-7.7); Neutrophil % 63.6 % (47-70); Platelet Count 236 K/mm3 (150-450); RBC Distribution Width CV 13.4 % (11.6-14.6); RBC Distribution Width SD 44.9 fl (35.1-43.9); Red Blood Count 4.88 M/mm3 (4.6-6.2); White Blood Count 8.7 K/mm3 (4.4-11.0)
[2018-09-25 17:53] LABS: POSITIVE COUNT NO; POSITIVE DIFFERENTIAL NO; POSITIVE MORPHOLOGY NO
[2018-09-25 17:56] LABS: ALB/GLOB Ratio 1.1 RATIO (0.9-2.4); AST(SGOT) 15 U/L (15-37); Alanine Aminotransfer ALT/SGPT 31 U/L (16-61); Albumin, Serum 3.8 g/dL (3.2-5.0); Alkaline Phosphatase 57 U/L (45-117); Anion Gap 5 (5-15); BUN 20 mg/dL (7-18); Calcium,Total 8.8 mg/dL (8.5-10.1); Chloride 109 mmol/L (98-107); Creatinine, Serum 1.33 mg/dL (0.70-1.30); EST Glomerular Filtration Rate 62 mL/min (>60); Est Glom Filt Rate - Afr Amer 75 mL/min (>60); Globulin 3.5 g/dL (2.2-4.2); Glucose 81 mg/dL (74-106); Potassium 4.2 mmol/L (3.5-5.1); Protein, Total 7.3 g/dL (6.4-8.2); Sodium Level 140 mmol/L (136-145)
== END | disposition home or self-care (01) ==
LOC: MTLAB 15:53
PROVIDERS: Family Provider Family Medicine; PCP Family Medicine; Referring Provider Family Medicine; Visit Provider Family Medicine
DX: M06.00 Rheumatoid arthritis without rheumatoid factor, unspecified site (principal); I11.0 Hypertensive heart disease with heart failure; E11.9 Type 2 diabetes mellitus without complications; S69.91XA Unspecified injury of right wrist, hand and finger(s), initial encounter; Z79.899 Other long term (current) drug therapy
CPT/HCPCS: 36415; 73110; 80053; 85025

== ENCOUNTER → 2018-12-24 | Outpatient (CLI) | payer BC, SELFPAY ==
[2018-12-24 17:43] LABS: Absolute Lymphocyte Count 1.81 X10^3/ul (0.83-4.51); Absolute Neutrophil Count 3.7 X10^3/uL (2.0-7.7); Basophil# 0.03 X10^3/uL; Basophil% 0.5 % (0-1); Eosinophil# 0.21 X10^3/uL; Eosinophils% 3.3 % (0-5); Hematocrit 46.2 % (40-54); Hemoglobin 15.6 g/dl (13.0-16.5); Lymphocyte # 1.81 X10^3/ul (4.0); Lymphocyte % 28.3 % (19-41); Mean Corp Hgb Conc 33.8 g/gl (32-36); Mean Corpuscular Hgb 30.5 pg (27.0-32.0); Mean Corpuscular Volume 90.2 fL (80-94); Mean Platelet Vol. 10.7 fl (6.2-12.0); Monocyte# 0.59 X10^3/uL; Monocyte% 9.2 % (0-10); Neutrophil # 3.74 X10^3/uL (2.7-7.7); Neutrophil % 58.5 % (47-70); Platelet Count 226 K/mm3 (150-450); RBC Distribution Width CV 13.3 % (11.6-14.6); RBC Distribution Width SD 43.2 fl (35.1-43.9); Red Blood Count 5.12 M/mm3 (4.6-6.2); White Blood Count 6.4 K/mm3 (4.4-11.0)
[2018-12-24 17:45] LABS: POSITIVE COUNT NO; POSITIVE DIFFERENTIAL NO; POSITIVE MORPHOLOGY NO
[2018-12-24 17:52] LABS: AST(SGOT) 22 U/L (15-37); Alanine Aminotransfer ALT/SGPT 37 U/L (16-61); Albumin, Serum 3.6 g/dL (3.2-5.0); Alkaline Phosphatase 68 U/L (45-117); Anion Gap 9 (5-15); BUN 18 mg/dL (7-18); BUN/Creat Ratio 13.2 RATIO (10-20); Chloride 104 mmol/L (98-107); Creatinine, Serum 1.36 mg/dL (0.70-1.30); EST Glomerular Filtration Rate 60 mL/min (>60); Est Glom Filt Rate - Afr Amer 73 mL/min (>60); Globulin 3.7 g/dL (2.2-4.2); Glucose 302 mg/dL (74-106); Potassium 4.4 mmol/L (3.5-5.1); Protein, Total 7.3 g/dL (6.4-8.2); Sodium Level 139 mmol/L (136-145)
== END | disposition home or self-care (01) ==
LOC: MTLAB 14:49
PROVIDERS: Family Provider Family Medicine; PCP Family Medicine; Referring Provider Internal Medicine Rheumatology; Visit Provider Internal Medicine Rheumatology
DX: M06.00 Rheumatoid arthritis without rheumatoid factor, unspecified site (principal); I10 Essential (primary) hypertension; E11.9 Type 2 diabetes mellitus without complications; Z79.899 Other long term (current) drug therapy
CPT/HCPCS: 36415; 80053; 85025

== ENCOUNTER → 2019-03-21 | Outpatient (CLI) | payer BC, SELFPAY ==
[2019-03-21 07:09] LABS: Absolute Lymphocyte Count 1.79 X10^3/uL (0.83-4.51); Absolute Neutrophil Count 4.2 X10^3/uL (2.0-7.7); Basophil% 0.8 % (0-1); Eosinophils% 4.8 % (0-5); Hematocrit 46.2 % (40-54); Hemoglobin 15.2 g/dL (13.0-16.5); Lymphocyte # 1.79 X10^3/ul (4.0); Lymphocyte % 25.2 % (19-41); Mean Corp Hgb Conc 32.9 g/dL (32-36); Mean Corpuscular Hgb 30.8 pg (27.0-32.0); Mean Corpuscular Volume 93.7 fL (80-94); Mean Platelet Vol. 9.3 fl (6.2-12.0); Monocyte# 0.66 X10^3/uL; Monocyte% 9.3 % (0-10); Neutrophil # 4.21 X10^3/uL (2.7-7.7); Neutrophil % 59.3 % (47-70); Platelet Count 254 K/mm3 (150-450); RBC Distribution Width CV 12.7 % (11.6-14.6); Red Blood Count 4.93 M/mm3 (4.6-6.2); White Blood Count 7.1 K/mm3 (4.4-11.0)
[2019-03-21 07:10] LABS: Basophil# 0.06 X10^3/uL; Eosinophil# 0.34 X10^3/uL; NRBC Flagged by Analyzer 0 % (0-5)
[2019-03-21 08:02] LABS: AST(SGOT) 13 U/L (15-37); Alanine Aminotransfer ALT/SGPT 32 U/L (16-61); Albumin, Serum 3.5 g/dL (3.2-5.0); Alkaline Phosphatase 61 U/L (45-117); Anion Gap 3 (5-15); BUN 17 mg/dL (7-18); BUN/Creat Ratio 13.8 RATIO (10-20); Calcium,Total 8.8 mg/dL (8.5-10.1); Chloride 108 mmol/L (98-107); Creatinine, Serum 1.23 mg/dL (0.70-1.30); EST Glomerular Filtration Rate 68 mL/min (>60); Est Glom Filt Rate - Afr Amer 82 mL/min (>60); Globulin 3.6 g/dL (2.2-4.2); Glucose 189 mg/dL (74-106); Potassium 4.4 mmol/L (3.5-5.1); Protein, Total 7.1 g/dL (6.4-8.2); Sodium Level 139 mmol/L (136-145)
== END | disposition home or self-care (01) ==
LOC: LAB 06:48
PROVIDERS: Family Provider Family Medicine; PCP Family Medicine; Referring Provider Internal Medicine Rheumatology; Visit Provider Internal Medicine Rheumatology
DX: M06.031 Rheumatoid arthritis without rheumatoid factor, right wrist (principal); I10 Essential (primary) hypertension; E11.9 Type 2 diabetes mellitus without complications; Z79.899 Other long term (current) drug therapy
CPT/HCPCS: 36415; 80053; 85025

== ENCOUNTER → 2019-06-16 12:00 | Outpatient (CLI) | payer BC, SELFPAY ==
[2019-06-16 13:58] LABS: Absolute Neutrophil Count 4.5 X10^3/uL (2.0-7.7); Basophil# 0.06 X10^3/uL; Basophil% 0.8 % (0-1); Eosinophil# 0.26 X10^3/uL; Eosinophils% 3.6 % (0-5); Hematocrit 48.3 % (40-54); Hemoglobin 16.1 g/dL (13.0-16.5); Lymphocyte % 23.6 % (19-41); Mean Corp Hgb Conc 33.3 g/dL (32-36); Mean Corpuscular Hgb 30.8 pg (27.0-32.0); Mean Corpuscular Volume 92.4 fL (80-94); Mean Platelet Vol. 10.2 fl (6.2-12.0); Monocyte# 0.68 X10^3/uL; Monocyte% 9.5 % (0-10); NRBC Flagged by Analyzer 0 % (0-5); Neutrophil # 4.45 X10^3/uL (2.7-7.7); Neutrophil % 61.9 % (47-70); Platelet Count 222 K/mm3 (150-450); RBC Distribution Width CV 12.4 % (11.6-14.6); RBC Distribution Width SD 41.6 fl (35.1-43.9); Red Blood Count 5.23 M/mm3 (4.6-6.2); White Blood Count 7.2 K/mm3 (4.4-11.0)
[2019-06-16 14:48] LABS: ALB/GLOB Ratio 0.9 RATIO (0.9-2.4); AST(SGOT) 19 U/L (15-37); Alanine Aminotransfer ALT/SGPT 44 U/L (16-61); Albumin, Serum 3.7 g/dL (3.2-5.0); Alkaline Phosphatase 67 U/L (45-117); Anion Gap 5 (5-15); BUN 15 mg/dL (7-18); BUN/Creat Ratio 12.8 RATIO (10-20); Chloride 102 mmol/L (98-107); Creatinine, Serum 1.17 mg/dL (0.70-1.30); EST Glomerular Filtration Rate 71 mL/min (>60); Est Glom Filt Rate - Afr Amer 86 mL/min (>60); Glucose 239 mg/dL (74-106); Potassium 4.2 mmol/L (3.5-5.1); Protein, Total 7.7 g/dL (6.4-8.2); Sodium Level 137 mmol/L (136-145)
== END ==
PROVIDERS: Family Provider Family Medicine; PCP Family Medicine; Referring Provider Internal Medicine Rheumatology; Visit Provider Internal Medicine Rheumatology
DX: M06.00 Rheumatoid arthritis without rheumatoid factor, unspecified site (principal); I10 Essential (primary) hypertension; E11.9 Type 2 diabetes mellitus without complications; Z79.899 Other long term (current) drug therapy
CPT/HCPCS: 36415; 80053; 85025

== ENCOUNTER → 2019-09-15 | Outpatient (CLI) | payer BC, SELFPAY ==
[2019-09-15 12:09] LABS: Absolute Lymphocyte Count 1.53 X10^3/uL (0.83-4.51); Absolute Neutrophil Count 3.7 X10^3/uL (2.0-7.7); Basophil# 0.06 X10^3/uL; Eosinophil# 0.18 X10^3/uL; Hematocrit 48.2 % (40-54); Lymphocyte # 1.53 X10^3/ul (4.0); Lymphocyte % 25.6 % (19-41); Mean Corp Hgb Conc 33.2 g/dL (32-36); Mean Corpuscular Hgb 31.1 pg (27.0-32.0); Mean Corpuscular Volume 93.8 fL (80-94); Mean Platelet Vol. 9.6 fl (6.2-12.0); Monocyte# 0.53 X10^3/uL; Monocyte% 8.9 % (0-10); NRBC Flagged by Analyzer 0 % (0-5); Neutrophil # 3.65 X10^3/uL (2.7-7.7); Platelet Count 227 K/mm3 (150-450); RBC Distribution Width CV 12.7 % (11.6-14.6); RBC Distribution Width SD 43.5 fl (35.1-43.9); Red Blood Count 5.14 M/mm3 (4.6-6.2)
[2019-09-15 12:22] LABS: AST(SGOT) 20 U/L (15-37); Alanine Aminotransfer ALT/SGPT 45 U/L (16-61); Albumin, Serum 3.7 g/dL (3.2-5.0); Alkaline Phosphatase 59 U/L (45-117); Anion Gap 7 (5-15); BUN 17 mg/dL (7-18); BUN/Creat Ratio 15.6 RATIO (10-20); Calcium,Total 8.8 mg/dL (8.5-10.1); Chloride 103 mmol/L (98-107); Creatinine, Serum 1.09 mg/dL (0.70-1.30); EST Glomerular Filtration Rate 77 mL/min (>60); Est Glom Filt Rate - Afr Amer 94 mL/min (>60); Globulin 3.7 g/dL (2.2-4.2); Glucose 212 mg/dL (74-106); Potassium 4.2 mmol/L (3.5-5.1); Protein, Total 7.4 g/dL (6.4-8.2); Sodium Level 137 mmol/L (136-145)
== END | disposition home or self-care (01) ==
LOC: MTLAB 10:06
PROVIDERS: PCP Family Medicine; Referring Provider Internal Medicine Rheumatology; Visit Provider Internal Medicine Rheumatology
DX: M06.00 Rheumatoid arthritis without rheumatoid factor, unspecified site (principal); I10 Essential (primary) hypertension; E11.9 Type 2 diabetes mellitus without complications; Z79.899 Other long term (current) drug therapy
CPT/HCPCS: 36415; 80053; 85025

== ENCOUNTER → 2019-12-13 | Outpatient (CLI) | payer BC, SELFPAY ==
[2019-12-13 08:51] LABS: Absolute Lymphocyte Count 2.42 X10^3/uL (0.83-4.51); Absolute Neutrophil Count 5.8 X10^3/uL (2.0-7.7); Basophil# 0.07 X10^3/uL; Basophil% 0.8 % (0-1); Eosinophil# 0.19 X10^3/uL; Hematocrit 47.7 % (40-54); Hemoglobin 15.6 g/dL (13.0-16.5); Lymphocyte # 2.42 X10^3/ul (4.0); Lymphocyte % 26.1 % (19-41); Mean Corp Hgb Conc 32.7 g/dL (32-36); Mean Corpuscular Hgb 30.2 pg (27.0-32.0); Mean Corpuscular Volume 92.4 fL (80-94); Mean Platelet Vol. 9.8 fl (6.2-12.0); Monocyte# 0.72 X10^3/uL; Monocyte% 7.8 % (0-10); NRBC Flagged by Analyzer 0 % (0-5); Neutrophil # 5.83 X10^3/uL (2.7-7.7); Neutrophil % 62.8 % (47-70); Platelet Count 227 K/mm3 (150-450); RBC Distribution Width CV 12.1 % (11.6-14.6); RBC Distribution Width SD 41.3 fl (35.1-43.9); Red Blood Count 5.16 M/mm3 (4.6-6.2); White Blood Count 9.3 K/mm3 (4.4-11.0)
[2019-12-13 09:32] LABS: AST(SGOT) 8 U/L (15-37); Alanine Aminotransfer ALT/SGPT 34 U/L (16-61); Albumin, Serum 3.5 g/dL (3.2-5.0); Alkaline Phosphatase 52 U/L (45-117); Anion Gap 6 (5-15); BUN 19 mg/dL (7-18); BUN/Creat Ratio 15.8 RATIO (10-20); Calcium,Total 8.9 mg/dL (8.5-10.1); Chloride 107 mmol/L (98-107); EST Glomerular Filtration Rate 69 mL/min (>60); Est Glom Filt Rate - Afr Amer 84 mL/min (>60); Globulin 3.6 g/dL (2.2-4.2); Glucose 224 mg/dL (74-106); Protein, Total 7.1 g/dL (6.4-8.2); Sodium Level 141 mmol/L (136-145)
== END | disposition home or self-care (01) ==
PROVIDERS: PCP Family Medicine; Referring Provider Internal Medicine Rheumatology; Visit Provider Internal Medicine Rheumatology
DX: M06.00 Rheumatoid arthritis without rheumatoid factor, unspecified site (principal); I10 Essential (primary) hypertension; E11.9 Type 2 diabetes mellitus without complications; Z79.899 Other long term (current) drug therapy
CPT/HCPCS: 36415; 80053; 85025

== ENCOUNTER → 2019-12-15 | Outpatient (CLI) | payer BC, SELFPAY ==
[2019-12-15 19:33] LABS: Synovial Fld Mononuclear WBC % 66.6 %; Synovial Fld Polynuclear WBC # 0.001 10^3/uL; Synovial Fld Polynuclear WBC % 33.4 %
[2019-12-15 21:19] LABS: AUTO B FLUID DILUENT BKGD CT WBC <0.1 RBC <0.01 (W<.1,R<.01); Appearance /Synovial Fluid Clear (CLEAR); Source- Body Fluid SYNOVIAL
[2019-12-15 21:20] LABS: RBC /Synovial Fluid 519 /mm3 (0)
[2019-12-15 21:28] LABS: Lymph 61 %; Monocyte /Synovial Fluid 4 %; Neutrophil 22 % (0-25); Other Cell /Synovial Fluid 13 %
[2019-12-15 21:29] LABS: Body Fluid QC Type(s) BF1Q,BF2Q
[2019-12-18 10:19] LABS: Pathologist Comment Reviewed; Pathologist Review Reviewed
== END | disposition home or self-care (01) ==
PROVIDERS: PCP Family Medicine; Referring Provider Internal Medicine Rheumatology; Visit Provider Internal Medicine Rheumatology
DX: M06.00 Rheumatoid arthritis without rheumatoid factor, unspecified site (principal); I10 Essential (primary) hypertension; E11.9 Type 2 diabetes mellitus without complications; Z79.899 Other long term (current) drug therapy
CPT/HCPCS: 87070; 87075; 87205; 89050; 89051; 89060

== ENCOUNTER → 2020-02-18 14:14 | Outpatient (CLI) | payer BC, SELFPAY ==
[2020-02-18 18:17] LABS: Microalbumin,Random Urine 69.4 mg/L (NO RANGE EST.)
[2020-02-18 18:33] LABS: AST(SGOT) 20 U/L (15-37); Alanine Aminotransfer ALT/SGPT 37 U/L (16-61); Albumin, Serum 3.8 g/dL (3.2-5.0); Alkaline Phosphatase 58 U/L (45-117); Anion Gap 3 (5-15); BUN 13 mg/dL (7-18); BUN/Creat Ratio 13.5 RATIO (10-20); Bilirubin, Direct 0.11 mg/dL (0.00-0.30); Calcium,Total 9.4 mg/dL (8.5-10.1); Chloride 108 mmol/L (98-107); Cholesterol 257 mg/dL (200); Creatinine, Serum 0.96 mg/dL (0.70-1.30); EST Glomerular Filtration Rate 89 mL/min (>60); Est Glom Filt Rate - Afr Amer 108 mL/min (>60); Glucose 152 mg/dL (74-106); High Density Lipoprotein 38 mg/dL; Potassium 4.2 mmol/L (3.5-5.1); Protein, Total 7.8 g/dL (6.4-8.2); Sodium Level 139 mmol/L (136-145); Triglycerides 405 mg/dL
== END ==
PROVIDERS: PCP Family Medicine; Referring Provider Family Medicine; Visit Provider Family Medicine
DX: E11.65 Type 2 diabetes mellitus with hyperglycemia (principal)
CPT/HCPCS: 36415; 80048; 80061; 80076; 82043; 82570

== ENCOUNTER → 2020-03-09 | Outpatient (CLI) | payer BC, SELFPAY ==
[2020-03-09 08:13] LABS: Absolute Lymphocyte Count 1.96 X10^3/uL (0.83-4.51); Absolute Neutrophil Count 3.5 X10^3/uL (2.0-7.7); Basophil# 0.06 X10^3/uL; Basophil% 0.9 % (0-1); Eosinophils% 3.1 % (0-5); Hematocrit 47.5 % (40-54); Hemoglobin 15.7 g/dL (13.0-16.5); Lymphocyte # 1.96 X10^3/ul (4.0); Lymphocyte % 30.8 % (19-41); Mean Corp Hgb Conc 33.1 g/dL (32-36); Mean Corpuscular Hgb 30.6 pg (27.0-32.0); Mean Corpuscular Volume 92.6 fL (80-94); Mean Platelet Vol. 9.7 fl (6.2-12.0); Monocyte# 0.65 X10^3/uL; Monocyte% 10.2 % (0-10); NRBC Flagged by Analyzer 0 % (0-5); Neutrophil # 3.46 X10^3/uL (2.7-7.7); Neutrophil % 54.5 % (47-70); Platelet Count 247 K/mm3 (150-450); RBC Distribution Width CV 12.7 % (11.6-14.6); RBC Distribution Width SD 43.4 fl (35.1-43.9); Red Blood Count 5.13 M/mm3 (4.6-6.2); White Blood Count 6.4 K/mm3 (4.4-11.0)
[2020-03-09 08:35] LABS: ALB/GLOB Ratio 0.9 RATIO (0.9-2.4); AST(SGOT) 24 U/L (15-37); Alanine Aminotransfer ALT/SGPT 46 U/L (16-61); Albumin, Serum 3.5 g/dL (3.2-5.0); Alkaline Phosphatase 56 U/L (45-117); Anion Gap 8 (5-15); BUN 17 mg/dL (7-18); BUN/Creat Ratio 14.2 RATIO (10-20); Calcium,Total 9.1 mg/dL (8.5-10.1); Chloride 103 mmol/L (98-107); EST Glomerular Filtration Rate 69 mL/min (>60); Est Glom Filt Rate - Afr Amer 84 mL/min (>60); Globulin 3.8 g/dL (2.2-4.2); Glucose 224 mg/dL (74-106); Potassium 4.5 mmol/L (3.5-5.1); Protein, Total 7.3 g/dL (6.4-8.2); Sodium Level 138 mmol/L (136-145)
== END | disposition home or self-care (01) ==
LOC: LAB 06:59
PROVIDERS: PCP Family Medicine; Referring Provider Internal Medicine Rheumatology; Visit Provider Internal Medicine Rheumatology
DX: M06.00 Rheumatoid arthritis without rheumatoid factor, unspecified site (principal); I10 Essential (primary) hypertension; E11.9 Type 2 diabetes mellitus without complications; Z79.899 Other long term (current) drug therapy
CPT/HCPCS: 36415; 80053; 85025

== ENCOUNTER → 2020-05-26 15:40 | Outpatient (CLI) | payer BC, SELFPAY ==
[2020-05-26 17:51] LABS: Absolute Lymphocyte Count 2.21 X10^3/uL (0.83-4.51); Absolute Neutrophil Count 5.8 X10^3/uL (2.0-7.7); Basophil# 0.09 X10^3/uL; Eosinophil# 0.16 X10^3/uL; Eosinophils% 1.8 % (0-5); Hematocrit 50.8 % (40-54); Hemoglobin 16.4 g/dL (13.0-16.5); Lymphocyte # 2.21 X10^3/ul (4.0); Lymphocyte % 24.3 % (19-41); Mean Corp Hgb Conc 32.3 g/dL (32-36); Mean Corpuscular Hgb 29.9 pg (27.0-32.0); Mean Corpuscular Volume 92.7 fL (80-94); Monocyte# 0.78 X10^3/uL; Monocyte% 8.6 % (0-10); NRBC Flagged by Analyzer 0 % (0-5); Neutrophil # 5.84 X10^3/uL (2.7-7.7); Platelet Count 281 K/mm3 (150-450); RBC Distribution Width CV 12.4 % (11.6-14.6); RBC Distribution Width SD 42.3 fl (35.1-43.9); Red Blood Count 5.48 M/mm3 (4.6-6.2); White Blood Count 9.1 K/mm3 (4.4-11.0)
[2020-05-26 18:06] LABS: AST(SGOT) 13 U/L (15-37); Alanine Aminotransfer ALT/SGPT 29 U/L (16-61); Albumin, Serum 4.1 g/dL (3.2-5.0); Alkaline Phosphatase 63 U/L (45-117); Anion Gap 6 (5-15); BUN 34 mg/dL (7-18); Calcium,Total 9.9 mg/dL (8.5-10.1); Chloride 105 mmol/L (98-107); Creatinine, Serum 1.62 mg/dL (0.70-1.30); EST Glomerular Filtration Rate 49 mL/min (>60); Est Glom Filt Rate - Afr Amer 59 mL/min (>60); Globulin 4.1 g/dL (2.2-4.2); Glucose 137 mg/dL (74-106); Potassium 4.2 mmol/L (3.5-5.1); Protein, Total 8.2 g/dL (6.4-8.2); Sodium Level 138 mmol/L (136-145)
== END ==
PROVIDERS: PCP Family Medicine; Referring Provider Internal Medicine Rheumatology; Visit Provider Internal Medicine Rheumatology
DX: M06.00 Rheumatoid arthritis without rheumatoid factor, unspecified site (principal); M25.561 Pain in right knee; I10 Essential (primary) hypertension; E11.9 Type 2 diabetes mellitus without complications; Z79.899 Other long term (current) drug therapy
CPT/HCPCS: 36415; 80053; 85025

== ENCOUNTER → 2020-06-03 | Outpatient (CLI) | payer BC, SELFPAY ==
[2020-06-03 07:56] VITALS: BMI 36.7
== END | disposition home or self-care (01) ==
LOC: LABSPEC 11:25
PROVIDERS: PCP Family Medicine; Referring Provider Physician Assistant; Visit Provider Physician Assistant
DX: U07.1 COVID-19 (principal)
CPT/HCPCS: 87635; U0003

== ENCOUNTER → 2020-07-01 07:12 | Outpatient (CLI) | payer BC, SELFPAY ==
[2020-06-03 07:56] VITALS: BMI 36.7
[2020-07-01 10:22] LABS: ALB/GLOB Ratio 0.9 RATIO (0.9-2.4); AST(SGOT) 14 U/L (15-37); Alanine Aminotransfer ALT/SGPT 31 U/L (16-61); Albumin, Serum 3.6 g/dL (3.2-5.0); Alkaline Phosphatase 56 U/L (45-117); Anion Gap 5 (5-15); BUN 14 mg/dL (7-18); BUN/Creat Ratio 13.5 RATIO (10-20); Calcium,Total 8.9 mg/dL (8.5-10.1); Chloride 104 mmol/L (98-107); Creatinine, Serum 1.04 mg/dL (0.70-1.30); EST Glomerular Filtration Rate 82 mL/min (>60); Est Glom Filt Rate - Afr Amer 99 mL/min (>60); Globulin 3.8 g/dL (2.2-4.2); Glucose 189 mg/dL (74-106); Potassium 4.1 mmol/L (3.5-5.1); Protein, Total 7.4 g/dL (6.4-8.2); Sodium Level 136 mmol/L (136-145)
== END ==
PROVIDERS: PCP Family Medicine; Referring Provider Internal Medicine Rheumatology; Visit Provider Internal Medicine Rheumatology
DX: M06.042 Rheumatoid arthritis without rheumatoid factor, left hand (principal); I10 Essential (primary) hypertension; E11.9 Type 2 diabetes mellitus without complications; Z79.899 Other long term (current) drug therapy
CPT/HCPCS: 36415; 80053

== ENCOUNTER → 2020-09-27 12:33 | Outpatient (CLI) | payer BC, SELFPAY ==
[2020-06-03 07:56] VITALS: BMI 36.7
[2020-09-24 07:08] VITALS: BMI 36.4
[2020-09-27 15:21] LABS: Absolute Neutrophil Count 5.6 X10^3/uL (2.0-7.7); Basophil# 0.05 X10^3/uL; Basophil% 0.6 % (0-1); Eosinophils% 2.5 % (0-5); Hematocrit 45.8 % (40-54); Hemoglobin 15.3 g/dL (13.0-16.5); Lymphocyte % 19.9 % (19-41); Mean Corp Hgb Conc 33.4 g/dL (32-36); Mean Corpuscular Hgb 30.7 pg (27.0-32.0); Mean Platelet Vol. 10.3 fl (6.2-12.0); Monocyte# 0.62 X10^3/uL; Monocyte% 7.7 % (0-10); NRBC Flagged by Analyzer 0 % (0-5); Neutrophil # 5.57 X10^3/uL (2.7-7.7); Neutrophil % 69.1 % (47-70); Platelet Count 254 K/mm3 (150-450); RBC Distribution Width CV 12.8 % (11.6-14.6); RBC Distribution Width SD 43.2 fl (35.1-43.9); Red Blood Count 4.98 M/mm3 (4.6-6.2); White Blood Count 8.1 K/mm3 (4.4-11.0)
[2020-09-27 15:33] LABS: AST(SGOT) 8 U/L (15-37); Alanine Aminotransfer ALT/SGPT 29 U/L (16-61); Albumin, Serum 3.7 g/dL (3.2-5.0); Alkaline Phosphatase 60 U/L (45-117); Anion Gap 8 (5-15); BUN 17 mg/dL (7-18); BUN/Creat Ratio 13.6 RATIO (10-20); Calcium,Total 9.3 mg/dL (8.5-10.1); Chloride 105 mmol/L (98-107); Creatinine, Serum 1.25 mg/dL (0.70-1.30); EST Glomerular Filtration Rate 66 mL/min (>60); Est Glom Filt Rate - Afr Amer 80 mL/min (>60); Globulin 3.8 g/dL (2.2-4.2); Glucose 239 mg/dL (74-106); Potassium 4.3 mmol/L (3.5-5.1); Protein, Total 7.5 g/dL (6.4-8.2); Sodium Level 136 mmol/L (136-145)
== END ==
PROVIDERS: PCP Family Medicine; Referring Provider Internal Medicine Rheumatology; Visit Provider Internal Medicine Rheumatology
DX: M06.042 Rheumatoid arthritis without rheumatoid factor, left hand (principal); I10 Essential (primary) hypertension; E11.9 Type 2 diabetes mellitus without complications; Z79.899 Other long term (current) drug therapy
CPT/HCPCS: 36415; 80053; 85025

== ENCOUNTER → 2020-12-21 09:10 | Outpatient (CLI) | payer BC, SELFPAY ==
[2020-09-24 07:08] VITALS: BMI 36.4
[2020-12-21 10:04] LABS: Absolute Lymphocyte Count 1.68 X10^3/uL (0.83-4.51); Absolute Neutrophil Count 5.3 X10^3/uL (2.0-7.7); Basophil# 0.06 X10^3/uL; Basophil% 0.8 % (0-1); Eosinophil# 0.17 X10^3/uL; Eosinophils% 2.2 % (0-5); Hematocrit 46.3 % (40-54); Hemoglobin 15.4 g/dL (13.0-16.5); Lymphocyte # 1.68 X10^3/ul (0.83-4.51); Lymphocyte % 21.6 % (19-41); Mean Corp Hgb Conc 33.3 g/dL (32-36); Mean Corpuscular Volume 90.1 fL (80-94); Monocyte# 0.58 X10^3/uL; Monocyte% 7.5 % (0-10); NRBC Flagged by Analyzer 0 % (0-5); Neutrophil # 5.26 X10^3/uL (2.7-7.7); Neutrophil % 67.5 % (47-70); Platelet Count 218 K/mm3 (150-450); RBC Distribution Width CV 12.4 % (11.6-14.6); RBC Distribution Width SD 40.5 fl (35.1-43.9); Red Blood Count 5.14 M/mm3 (4.6-6.2); White Blood Count 7.8 K/mm3 (4.4-11.0)
[2020-12-21 10:42] LABS: ALB/GLOB Ratio 0.9 RATIO (0.9-2.4); AST(SGOT) 14 U/L (15-37); Alanine Aminotransfer ALT/SGPT 24 U/L (16-61); Albumin, Serum 3.5 g/dL (3.2-5.0); Alkaline Phosphatase 63 U/L (45-117); Anion Gap 6 (5-15); BUN 17 mg/dL (7-18); BUN/Creat Ratio 15.9 RATIO (10-20); Calcium,Total 9.1 mg/dL (8.5-10.1); Chloride 104 mmol/L (98-107); Creatinine, Serum 1.07 mg/dL (0.70-1.30); EST Glomerular Filtration Rate 79 mL/min (>60); Est Glom Filt Rate - Afr Amer 95 mL/min (>60); Globulin 3.8 g/dL (2.2-4.2); Glucose 236 mg/dL (74-106); Potassium 4.3 mmol/L (3.5-5.1); Protein, Total 7.3 g/dL (6.4-8.2); Sodium Level 135 mmol/L (136-145)
== END ==
PROVIDERS: PCP Family Medicine; Referring Provider Internal Medicine Rheumatology; Visit Provider Internal Medicine Rheumatology
DX: M06.042 Rheumatoid arthritis without rheumatoid factor, left hand (principal); I10 Essential (primary) hypertension; E11.9 Type 2 diabetes mellitus without complications; Z79.899 Other long term (current) drug therapy
CPT/HCPCS: 36415; 80053; 85025

== ENCOUNTER → 2021-03-11 13:21 | Outpatient (CLI) | payer BC, SELFPAY ==
[2021-03-11 15:25] LABS: Absolute Neutrophil Count 5.2 X10^3/uL (2.0-7.7); Basophil# 0.09 X10^3/uL; Basophil% 1.1 % (0-1); Eosinophil# 0.19 X10^3/uL; Eosinophils% 2.4 % (0-5); Hemoglobin 15.4 g/dL (13.0-16.5); Lymphocyte % 22.6 % (19-41); Mean Corp Hgb Conc 32.8 g/dL (32-36); Mean Corpuscular Hgb 30.4 pg (27.0-32.0); Mean Corpuscular Volume 92.7 fL (80-94); Mean Platelet Vol. 10.2 fl (6.2-12.0); Monocyte# 0.64 X10^3/uL; NRBC Flagged by Analyzer 0 % (0-5); Neutrophil % 65.4 % (47-70); Platelet Count 298 K/mm3 (150-450); RBC Distribution Width CV 12.5 % (11.6-14.6); RBC Distribution Width SD 42.2 fl (35.1-43.9); Red Blood Count 5.07 M/mm3 (4.6-6.2)
[2021-03-11 15:48] LABS: ALB/GLOB Ratio 0.9 RATIO (0.9-2.4); AST(SGOT) 13 U/L (15-37); Alanine Aminotransfer ALT/SGPT 26 U/L (16-61); Albumin, Serum 3.6 g/dL (3.2-5.0); Alkaline Phosphatase 66 U/L (45-117); Anion Gap 7 (5-15); BUN 23 mg/dL (7-18); BUN/Creat Ratio 15.8 RATIO (10-20); Calcium,Total 9.3 mg/dL (8.5-10.1); Chloride 108 mmol/L (98-107); Creatinine, Serum 1.46 mg/dL (0.70-1.30); EST Glomerular Filtration Rate 55 mL/min (>60); Est Glom Filt Rate - Afr Amer 66 mL/min (>60); Globulin 4.2 g/dL (2.2-4.2); Glucose 201 mg/dL (74-106); Potassium 4.2 mmol/L (3.5-5.1); Protein, Total 7.8 g/dL (6.4-8.2); Sodium Level 138 mmol/L (136-145)
== END ==
PROVIDERS: PCP Family Medicine; Referring Provider Internal Medicine Rheumatology; Visit Provider Internal Medicine Rheumatology
DX: M06.00 Rheumatoid arthritis without rheumatoid factor, unspecified site (principal); I10 Essential (primary) hypertension; E11.9 Type 2 diabetes mellitus without complications; Z79.899 Other long term (current) drug therapy
CPT/HCPCS: 36415; 80053; 85025

== ENCOUNTER → 2021-05-10 12:24 | Outpatient (CLI) | payer BC, SELFPAY ==
[2021-05-10 15:14] LABS: Absolute Neutrophil Count 4.5 X10^3/uL (2.0-7.7); Basophil# 0.07 X10^3/uL; Eosinophil# 0.21 X10^3/uL; Eosinophils% 2.9 % (0-5); Lymphocyte % 24.7 % (19-41); Mean Corp Hgb Conc 33.3 g/dL (32-36); Mean Corpuscular Hgb 30.4 pg (27.0-32.0); Mean Corpuscular Volume 91.1 fL (80-94); Monocyte# 0.68 X10^3/uL; Monocyte% 9.3 % (0-10); NRBC Flagged by Analyzer 0 % (0-5); Neutrophil # 4.49 X10^3/uL (2.7-7.7); Neutrophil % 61.7 % (47-70); Platelet Count 271 K/mm3 (150-450); RBC Distribution Width CV 12.7 % (11.6-14.6); RBC Distribution Width SD 40.9 fl (35.1-43.9); Red Blood Count 5.27 M/mm3 (4.6-6.2); White Blood Count 7.3 K/mm3 (4.4-11.0)
[2021-05-10 15:27] LABS: ALB/GLOB Ratio 0.9 RATIO (0.9-2.4); AST(SGOT) 12 U/L (15-37); Alanine Aminotransfer ALT/SGPT 30 U/L (16-61); Albumin, Serum 3.6 g/dL (3.2-5.0); Alkaline Phosphatase 61 U/L (45-117); Anion Gap 6 (5-15); BUN 17 mg/dL (7-18); BUN/Creat Ratio 14.7 RATIO (10-20); Calcium,Total 9.5 mg/dL (8.5-10.1); Chloride 104 mmol/L (98-107); Creatinine, Serum 1.16 mg/dL (0.70-1.30); EST Glomerular Filtration Rate 72 mL/min (>60); Est Glom Filt Rate - Afr Amer 87 mL/min (>60); Glucose 224 mg/dL (74-106); Potassium 4.3 mmol/L (3.5-5.1); Protein, Total 7.6 g/dL (6.4-8.2); Sodium Level 137 mmol/L (136-145)
== END ==
PROVIDERS: PCP Family Medicine; Referring Provider Internal Medicine Rheumatology; Visit Provider Internal Medicine Rheumatology
DX: M06.00 Rheumatoid arthritis without rheumatoid factor, unspecified site (principal); I10 Essential (primary) hypertension; E11.9 Type 2 diabetes mellitus without complications; Z79.899 Other long term (current) drug therapy
CPT/HCPCS: 36415; 80053; 85025

== ENCOUNTER 2021-08-02 16:40 | Outpatient (CLI) | payer BC, SELFPAY ==
[2021-08-02 17:06] LABS: Absolute Lymphocyte Count 2.29 X10^3/uL (0.83-4.51); Absolute Neutrophil Count 4.8 X10^3/uL (2.0-7.7); Basophil# 0.06 X10^3/uL; Basophil% 0.7 % (0-1); Eosinophil# 0.23 X10^3/uL; Eosinophils% 2.8 % (0-5); Hematocrit 47.8 % (40-54); Hemoglobin 16.5 g/dL (13.0-16.5); Lymphocyte # 2.29 X10^3/ul (0.83-4.51); Lymphocyte % 28.3 % (19-41); Mean Corp Hgb Conc 34.5 g/dL (32-36); Mean Corpuscular Hgb 31.3 pg (27.0-32.0); Mean Corpuscular Volume 90.7 fL (80-94); Monocyte# 0.69 X10^3/uL; Monocyte% 8.5 % (0-10); NRBC Flagged by Analyzer 0 % (0-5); Neutrophil % 59.5 % (47-70); Platelet Count 230 K/mm3 (150-450); RBC Distribution Width CV 12.6 % (11.6-14.6); RBC Distribution Width SD 41.4 fl (35.1-43.9); Red Blood Count 5.27 M/mm3 (4.6-6.2); White Blood Count 8.1 K/mm3 (4.4-11.0)
[2021-08-02 17:08] LABS: AST(SGOT) 18 U/L (15-37); Alanine Aminotransfer ALT/SGPT 40 U/L (16-61); Albumin, Serum 3.8 g/dL (3.2-5.0); Alkaline Phosphatase 68 U/L (45-117); Anion Gap 4 (5-15); BUN 20 mg/dL (7-18); Calcium,Total 9.6 mg/dL (8.5-10.1); Chloride 103 mmol/L (98-107); Creatinine, Serum 1.33 mg/dL (0.70-1.30); EST Glomerular Filtration Rate 61 mL/min (>60); Est Glom Filt Rate - Afr Amer 74 mL/min (>60); Globulin 3.8 g/dL (2.2-4.2); Glucose 257 mg/dL (74-106); Protein, Total 7.6 g/dL (6.4-8.2); Sodium Level 135 mmol/L (136-145)
== END 2021-08-02 23:59 | disposition home or self-care (01) ==
LOC: LAB 16:42
PROVIDERS: PCP Internal Medicine Rheumatology; Visit Provider Internal Medicine Rheumatology
DX: M06.00 Rheumatoid arthritis without rheumatoid factor, unspecified site (principal); E11.9 Type 2 diabetes mellitus without complications; I10 Essential (primary) hypertension; Z79.899 Other long term (current) drug therapy
CPT/HCPCS: 36415; 80053; 85025

== ENCOUNTER → 2021-10-26 | Outpatient (CLI) | payer BC, SELFPAY ==
[2021-10-26 16:06] LABS: Microalbumin:Creatinine Ratio 125.7 mg/g CRE (<30 mg/g CRE)
[2021-10-26 16:07] LABS: ALB/GLOB Ratio 0.9 RATIO (0.9-2.4); AST(SGOT) 13 U/L (15-37); Alanine Aminotransfer ALT/SGPT 25 U/L (16-61); Albumin, Serum 3.6 g/dL (3.2-5.0); Alkaline Phosphatase 59 U/L (45-117); Anion Gap 8 (5-15); BUN 19 mg/dL (7-18); BUN/Creat Ratio 17.9 RATIO (10-20); Calcium,Total 9.4 mg/dL (8.5-10.1); Chloride 107 mmol/L (98-107); Cholesterol 137 mg/dL (200); Creatinine, Serum 1.06 mg/dL (0.70-1.30); EST Glomerular Filtration Rate 79 mL/min (>60); Est Glom Filt Rate - Afr Amer 96 mL/min (>60); Globulin 3.8 g/dL (2.2-4.2); Glucose 105 mg/dL (74-106); High Density Lipoprotein 41 mg/dL; Potassium 3.6 mmol/L (3.5-5.1); Protein, Total 7.4 g/dL (6.4-8.2); Sodium Level 140 mmol/L (136-145); Triglycerides 279 mg/dL; Very Low Density Lipoprotein 56 mg/dL (5-40)
[2021-10-26 17:45] LABS: Absolute Lymphocyte Count 1.88 X10^3/uL (0.83-4.51); Absolute Neutrophil Count 6.7 X10^3/uL (2.0-7.7); Basophil# 0.05 X10^3/uL; Basophil% 0.5 % (0-1); Hematocrit 45.5 % (40-54); Hemoglobin 15.1 g/dL (13.0-16.5); Lymphocyte # 1.88 X10^3/ul (0.83-4.51); Lymphocyte % 19.3 % (19-41); Mean Corp Hgb Conc 33.2 g/dL (32-36); Mean Corpuscular Hgb 30.3 pg (27.0-32.0); Mean Corpuscular Volume 91.2 fL (80-94); Mean Platelet Vol. 10.2 fl (6.2-12.0); Monocyte# 0.91 X10^3/uL; Monocyte% 9.3 % (0-10); NRBC Flagged by Analyzer 0 % (0-5); Neutrophil # 6.67 X10^3/uL (2.7-7.7); Neutrophil % 68.4 % (47-70); Platelet Count 263 K/mm3 (150-450); RBC Distribution Width CV 12.4 % (11.6-14.6); RBC Distribution Width SD 40.9 fl (35.1-43.9); Red Blood Count 4.99 M/mm3 (4.6-6.2); White Blood Count 9.8 K/mm3 (4.4-11.0)
== END | disposition home or self-care (01) ==
LOC: MTLAB 11:53
PROVIDERS: PCP Family Medicine; Referring Provider Family Medicine; Visit Provider Family Medicine
DX: M06.00 Rheumatoid arthritis without rheumatoid factor, unspecified site (principal); E11.9 Type 2 diabetes mellitus without complications; I10 Essential (primary) hypertension; Z79.899 Other long term (current) drug therapy
CPT/HCPCS: 36415; 80053; 80061; 82043; 82248; 82570; 85025

== ENCOUNTER → 2022-01-24 | Outpatient (CLI) | payer BC, SELFPAY ==
[2022-01-24 10:04] LABS: Absolute Lymphocyte Count 1.71 X10^3/uL (0.83-4.51); Absolute Neutrophil Count 4.8 X10^3/uL (2.0-7.7); Basophil# 0.06 X10^3/uL; Basophil% 0.8 % (0-1); Eosinophil# 0.22 X10^3/uL; Hematocrit 43.4 % (40-54); Hemoglobin 14.8 g/dL (13.0-16.5); Lymphocyte # 1.71 X10^3/ul (0.83-4.51); Lymphocyte % 23.1 % (19-41); Mean Corp Hgb Conc 34.1 g/dL (32-36); Mean Corpuscular Hgb 31.1 pg (27.0-32.0); Mean Corpuscular Volume 91.2 fL (80-94); Mean Platelet Vol. 10.1 fl (6.2-12.0); Monocyte% 8.1 % (0-10); NRBC Flagged by Analyzer 0 % (0-5); Neutrophil # 4.78 X10^3/uL (2.7-7.7); Neutrophil % 64.7 % (47-70); Platelet Count 235 K/mm3 (150-450); RBC Distribution Width CV 12.5 % (11.6-14.6); RBC Distribution Width SD 41.3 fl (35.1-43.9); Red Blood Count 4.76 M/mm3 (4.6-6.2); White Blood Count 7.4 K/mm3 (4.4-11.0)
[2022-01-24 10:30] LABS: AST(SGOT) 10 U/L (15-37); Alanine Aminotransfer ALT/SGPT 26 U/L (16-61); Albumin, Serum 3.5 g/dL (3.2-5.0); Alkaline Phosphatase 49 U/L (45-117); Anion Gap 5 (5-15); BUN 16 mg/dL (7-18); BUN/Creat Ratio 15.4 RATIO (10-20); Chloride 105 mmol/L (98-107); Creatinine, Serum 1.04 mg/dL (0.70-1.30); EST Glomerular Filtration Rate 81 mL/min (>60); Est Glom Filt Rate - Afr Amer 98 mL/min (>60); Globulin 3.5 g/dL (2.2-4.2); Glucose 211 mg/dL (74-106); Potassium 4.8 mmol/L (3.5-5.1); Sodium Level 137 mmol/L (136-145)
== END | disposition home or self-care (01) ==
LOC: MTLAB 07:12
PROVIDERS: PCP Family Medicine; Referring Provider Internal Medicine Rheumatology; Visit Provider Internal Medicine Rheumatology
DX: M06.00 Rheumatoid arthritis without rheumatoid factor, unspecified site (principal); E11.9 Type 2 diabetes mellitus without complications; I10 Essential (primary) hypertension; Z79.899 Other long term (current) drug therapy
CPT/HCPCS: 36415; 80053; 85025

== ENCOUNTER → 2022-01-25 | Outpatient (CLI) | payer BC, SELFPAY ==
[2022-01-29 15:48] LABS: G6PD Quant Test 255 (127-427)
== END | disposition home or self-care (01) ==
LOC: MTLAB 15:48
PROVIDERS: PCP Family Medicine; Referring Provider Internal Medicine Rheumatology; Visit Provider Internal Medicine Rheumatology
DX: M06.00 Rheumatoid arthritis without rheumatoid factor, unspecified site (principal); E11.9 Type 2 diabetes mellitus without complications; I10 Essential (primary) hypertension; Z79.899 Other long term (current) drug therapy
CPT/HCPCS: 36415; 82955

== ENCOUNTER → 2022-03-21 | Outpatient (CLI) | payer BC, SELFPAY ==
[2022-03-21 10:08] LABS: Absolute Lymphocyte Count 1.75 X10^3/uL (0.83-4.51); Absolute Neutrophil Count 4.1 X10^3/uL (2.0-7.7); Basophil# 0.07 X10^3/uL; Eosinophil# 0.17 X10^3/uL; Eosinophils% 2.5 % (0-5); Hematocrit 44.7 % (40-54); Hemoglobin 15.2 g/dL (13.0-16.5); Lymphocyte # 1.75 X10^3/ul (0.83-4.51); Lymphocyte % 25.8 % (19-41); Mean Corpuscular Hgb 31.1 pg (27.0-32.0); Mean Corpuscular Volume 91.6 fL (80-94); Monocyte# 0.63 X10^3/uL; Monocyte% 9.3 % (0-10); NRBC Flagged by Analyzer 0 % (0-5); Neutrophil # 4.11 X10^3/uL (2.7-7.7); Neutrophil % 60.7 % (47-70); Platelet Count 225 K/mm3 (150-450); RBC Distribution Width CV 12.5 % (11.6-14.6); RBC Distribution Width SD 41.3 fl (35.1-43.9); Red Blood Count 4.88 M/mm3 (4.6-6.2); White Blood Count 6.8 K/mm3 (4.4-11.0)
[2022-03-21 11:10] LABS: ALB/GLOB Ratio 0.9 RATIO (0.9-2.4); AST(SGOT) 11 U/L (15-37); Alanine Aminotransfer ALT/SGPT 28 U/L (16-61); Albumin, Serum 3.7 g/dL (3.2-5.0); Alkaline Phosphatase 48 U/L (45-117); Anion Gap 5 (5-15); BUN 22 mg/dL (7-18); BUN/Creat Ratio 19.8 RATIO (10-20); Calcium,Total 9.8 mg/dL (8.5-10.1); Chloride 106 mmol/L (98-107); Creatinine, Serum 1.11 mg/dL (0.70-1.30); EST Glomerular Filtration Rate 75 mL/min (>60); Est Glom Filt Rate - Afr Amer 91 mL/min (>60); Globulin 3.9 g/dL (2.2-4.2); Glucose 223 mg/dL (74-106); Potassium 5.2 mmol/L (3.5-5.1); Protein, Total 7.6 g/dL (6.4-8.2); Sodium Level 138 mmol/L (136-145)
== END | disposition home or self-care (01) ==
LOC: MTLAB 08:57
PROVIDERS: PCP Family Medicine; Referring Provider Internal Medicine Rheumatology; Visit Provider Internal Medicine Rheumatology
DX: M06.00 Rheumatoid arthritis without rheumatoid factor, unspecified site (principal); E11.9 Type 2 diabetes mellitus without complications; I10 Essential (primary) hypertension; Z79.899 Other long term (current) drug therapy
CPT/HCPCS: 36415; 80053; 85025

== ENCOUNTER → 2022-05-26 | Outpatient (CLI) | payer BC, SELFPAY ==
--- NOTE | 2022-05-26 10:32 | RAD_ITS ---
INDICATION: BACK PAIN/ SCIATICA EXAMINATION/TECHNIQUE: X-RAY - XR Spine Lumbar Min 4 Views COMPARISON: None. FINDINGS: VERTEBRAE: Preserved vertebral body height. No fracture. No spondylolisthesis. Preservation of the normal lumbar lordosis. No significant facet arthropathy... DISCS: There is narrowing of L5-S1 disc space and L4-5. There is multilevel anterior endplate spurring. INCLUDED ABDOMEN: Included bowel gas pattern is non-obstructive. RAD/L/S Spine Min 4 Views IMPRESSION: Mild degenerative changes. No acute fracture or other significant bony pathology Electronically Signed: Chip Thorne MD at 18:50 EST ,
== END | disposition home or self-care (01) ==
LOC: MTRAD 10:32
PROVIDERS: PCP Family Medicine; Referring Provider Family Medicine; Visit Provider Family Medicine
DX: M53.87 Other specified dorsopathies, lumbosacral region (principal)
CPT/HCPCS: 72110

== ENCOUNTER → 2022-06-02 | Outpatient (CLI) | payer BC, SELFPAY ==
[2022-06-02 12:30] LABS: Absolute Lymphocyte Count 1.74 X10^3/uL (0.83-4.51); Absolute Neutrophil Count 7.6 X10^3/uL (2.0-7.7); Basophil# 0.02 X10^3/uL; Basophil% 0.2 % (0-1); Eosinophil# 0.01 X10^3/uL; Eosinophils% 0.1 % (0-5); Hematocrit 46.8 % (40-54); Hemoglobin 16.2 g/dL (13.0-16.5); Lymphocyte # 1.74 X10^3/ul (0.83-4.51); Lymphocyte % 17.1 % (19-41); Mean Corp Hgb Conc 34.6 g/dL (32-36); Mean Corpuscular Hgb 30.7 pg (27.0-32.0); Mean Corpuscular Volume 88.8 fL (80-94); Mean Platelet Vol. 10.2 fl (6.2-12.0); Monocyte# 0.81 X10^3/uL; NRBC Flagged by Analyzer 0 % (0-5); Neutrophil # 7.55 X10^3/uL (2.7-7.7); Neutrophil % 74.3 % (47-70); Platelet Count 280 K/mm3 (150-450); RBC Distribution Width CV 12.3 % (11.6-14.6); RBC Distribution Width SD 40.1 fl (35.1-43.9); Red Blood Count 5.27 M/mm3 (4.6-6.2); White Blood Count 10.2 K/mm3 (4.4-11.0)
[2022-06-02 12:49] LABS: ALB/GLOB Ratio 1.1 RATIO (0.9-2.4); AST(SGOT) 11 U/L (15-37); Alanine Aminotransfer ALT/SGPT 31 U/L (16-61); Albumin, Serum 4.1 g/dL (3.2-5.0); Alkaline Phosphatase 58 U/L (45-117); Anion Gap 7 (5-15); BUN 20 mg/dL (7-18); BUN/Creat Ratio 16.5 RATIO (10-20); Calcium,Total 10.4 mg/dL (8.5-10.1); Chloride 101 mmol/L (98-107); Creatinine, Serum 1.21 mg/dL (0.70-1.30); EST Glomerular Filtration Rate 68 mL/min (>60); Est Glom Filt Rate - Afr Amer 82 mL/min (>60); Globulin 3.9 g/dL (2.2-4.2); Glucose 279 mg/dL (74-106); Potassium 4.4 mmol/L (3.5-5.1); Sodium Level 135 mmol/L (136-145)
== END | disposition home or self-care (01) ==
LOC: MTLAB 09:24
PROVIDERS: PCP Family Medicine; Referring Provider Internal Medicine Rheumatology; Visit Provider Internal Medicine Rheumatology
DX: M06.00 Rheumatoid arthritis without rheumatoid factor, unspecified site (principal); E11.9 Type 2 diabetes mellitus without complications; I10 Essential (primary) hypertension; Z79.899 Other long term (current) drug therapy
CPT/HCPCS: 36415; 80053; 85025

== ENCOUNTER 2022-07-11 13:30 | Outpatient (RCR) | payer BC, SELFPAY ==
--- NOTE | 2022-06-26 09:56 | HP.PTEVAL_ITS ---
Patient's Visit Information ALIVIA VELÁZQUEZ is a 46 year old M referred to Physical Therapy by Dr. Tessa Landrum MD with a diagnosis of Lumbar Radiculopathy. Date of Evaluation: 06/26/22 Physical Therapist: LEILA Burgess - Visit Plan Frequency: 2x /Week Duration: 6 Weeks Plan: 2X/ week for 6 weeks for centralization of symptoms using extension principle, core stability starting with neutral spine, L LE strength and L DF/gastroc strength, gait training with HEP. HEP: Prone lying with 3 pillows under the abdomin, standing toe raises - Subjective Pt reports that Thanksgiving and he was bringing up chairs and tables from the basement. Sunday he could not walk. It was in his back and side of hip and down to the R leg. His back pain went away but R hip down side of leg and calf and his big toe feels numb and funny. He had a burning pain 24 hours for 2 weeks. He is on Prednizone (high does for 5 days and low dose for 5 days). Dr wants to see what PT does before an MRI. He is not on pain meds. He is not back to work and off work for next 2 weeks. 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 He notices that he does have some weakness in that R leg and notices that his balance is not that great. Evenings seems to be the worst. He tries to stay moving every day. He has never had a back injury before. He does have what he thinks is RA... his joints are inflammed and sees Sanam. Pt reports that he has increase pain with longer stride length. - Pain Back pain Pain Intensity (Out of 10): 3 R leg pain Pain Intensity (Out of 10): 3 - Objective Gait: Walks with decrease stride length on the L LE, decrease stance time on the L LE, decrease trunk AROM. Pt has trouble with raising his R toes towards the ceiling...decrease ROM and needs UE to be able to do it. Trunk AROM: flex 25%, ext pt can not get to neutral due to pain. LE MMT: R hip flex 10.7# and L hip flex 11.9#. R knee ext 18.6# and L knee ext 27.4#. R knee flex 9.6# and L knee flex 11.8#. R hip abd 9.7# and L hip abd 18.7#. Patellar DTR: 2+/3 B. Straight Leg Raise + on the R for immed burning pain and negative on the L. No pain with bridging and able to do 3/4 normal ROM bridge. Slump test on the R for pain and negative on the L. Prone Lying with no pillow...pt felt the pain in his back but the longer he laid there the more the pain went into his R butt cheek. Prone lying with 1 pillow under abdomin pain was a little duller but still into the R buttock. Prone lying with 2 pillows under the abdomin.... same spot in buttocks but very dull but the longer he lays there the worse it gets. Prone lying with 3 pillows under abdomin ..... pt had no pain and was able to lay there for 5 min without pain. He was then able to get back up and walk with it feeling much better. Instructed pt to not let the pain go down his leg and change position if it does. - Balance/Special Test Scores Oswestry Low Back Score: 19 - Goals Goal 1:: I HEP Goal Time Frame: 6-8 Weeks Goal 2:: Be able to centralize leg pain to the back Goal Time Frame: 6-8 Weeks Goal 3:: Be able to RTW without having back pain Goal Time Frame: 6-8 Weeks Goal 4:: Be able to sit with upright posture without having back pain doing so Goal Time Frame: 6-8 Weeks Goal 5:: Be able to toe raise on the R to full ROM Goal Time Frame: 6-8 Weeks Goal 6:: Increase L LE strength (at time of the eval: R hip flex 10.7# and L hip flex 11.9#. R knee ext 18.6# and L knee ext 27.4#. R knee flex 9.6# and L knee flex 11.8#. R hip abd 9.7# and L hip abd 18.7#). Goal Time Frame: 6-8 Weeks - Rehabilitation Potential Rehabilitation Potential: Good - Anticipated Interventions Patient/Client Instruction: Educate patient on: Condition, Plan of Care For the Purpose of:: To decrease pain, To increase ROM, To improve nutrient delivery to tissue, To improve muscle performance and motor function, To improve ability to perform ADL's, To increase tolerance to activity/condition/position, To improve performance and independence with ADL's, To decrease level of supervision to perform tasks, To improve ability of physical actions for home/community/work/leisure, To improve gait and locomotor functions, To improve health of tissue, To decrease soft tissue restriction, To increase flexibility/ROM, To improve safety with gait Therapeutic Exercise to Include: Strength training, Endurance training, Body mechanics, Postural training, Flexibilty training, Gait and locomotor training, Neuromotor development, Passive ROM, Active ROM, Dynamic Lumbar Stabilization, Leslie Exercises, Scapular Strength/Stabilization For the Purpose of:: To decrease pain, To decrease swelling/inflammation, To increase ROM, To improve nutrient delivery to tissue, To improve muscle perf ormance and motor function, To improve ability to perform ADL's, To increase tolerance to activity/condition/position, To improve performance and independence with ADL's, To decrease level of supervision to perform tasks, To improve ability of physical actions for home/community/work/leisure, To improve gait and locomotor functions, To improve health of tissue, To decrease soft tissue restriction, To increase flexibility/ROM, To improve balance, To improve safety with gait Functional Training to Include: Gait training For the Purpose of:: To improve gait and locomotor functions, To improve safety with gait Manual Therapy Techniques to Include: Mobilization, Passive ROM, Soft tissue mobilization For the Purpose of:: To decrease pain, To increase ROM, To improve nutrient delivery to tissue, To improve muscle performance and motor function, To improve ability to perform ADL's, To increase tolerance to activity/condition/position IF ES: Yes Cryotherapy (ice pack, ice massage): Yes Thermo therapy (hot pack): Yes For the Purpose of:: To decrease pain, To decrease swelling/inflammation, To increase ROM, To improve nutrient delivery to tissue Thank you for the opportunity to evaluate your patient. For Medicare and Medicare HMO plans, please review the plan of care and approve it. It will need to be FAXED BACK to us at [phone] for Medicare purposes. For Medicare only, by signing this I certify the plan of care. Please let me know if there are questions or concerns regarding this plan of care. Physician Signature: Date:
--- NOTE | 2022-12-27 16:08 | HP.PT.NRP ---
Patient Information Patient Information: ALIVIA VELÁZQUEZ was seen in my office for initial evaluation on 06/26/22. The following Plan of Care was established for this patient: POC Established Initial Frequency: 2x /Week Initial Duration: 6 Weeks Anticipated Interventions Patient/Client Instruction: Educate patient on: Condition and Plan of Care For the Purpose of:: To decrease pain, To increase ROM, To improve nutrient delivery to tissue, To improve muscle performance and motor function, To improve ability to perform ADL's, To increase tolerance to activity/condition/position, To improve performance and independence with ADL's, To decrease level of supervision to perform tasks, To improve ability of physical actions for home/community/work/leisure, To improve gait and locomotor functions, To improve health of tissue, To decrease soft tissue restriction, To increase flexibility/ROM and To improve safety with gait Therapeutic Exercise to Include: Strength training, Endurance training, Body mechanics, Postural training, Flexibilty training, Gait and locomotor training, Neuromotor development, Passive ROM, Active ROM, Dynamic Lumbar Stabilization, Leslie Exercises and Scapular Strength/Stabilization For the Purpose of:: To decrease pain, To decrease swelling/inflammation, To increase ROM, To improve nutrient delivery to tissue, To improve muscle performance and motor function, To improve ability to perform ADL's, To increase tolerance to activity/condition/position, To improve performance and independence with ADL's, To decrease level of supervision to perform tasks, To improve ability of physical actions for home/community/work/leisure, To improve gait and locomotor functions, To improve health of tissue, To decrease soft tissue restriction, To increase flexibility/ROM, To improve balance and To improve safety with gait Functional Training to Include: Gait training For the Purpose of:: To improve gait and locomotor functions and To improve safety with gait Manual Therapy Techniques to Include: Mobilization, Passive ROM and Soft tissue mobilization For the Purpose of:: To decrease pain, To increase ROM, To improve nutrient delivery to tissue, To improve muscle performance and motor function, To improve ability to perform ADL's and To increase tolerance to activity/condition/position IF ES: Yes Cryotherapy (ice pack, ice massage): Yes Thermo therapy (hot pack): Yes For the Purpose of:: To decrease pain, To decrease swelling/inflammation, To increase ROM and To improve nutrient delivery to tissue Last Seen Last Seen: This patient was last seen in our office 07/11/22. Pertinent comments regarding their Physical therapy will appear below: Pt cx his last scheduled appt and will be discharged at this time At this point I will be discontinuing this patient from physical therapy. I would be happy to see this patient again in the future if found appropriate by the physician. Thank you! Sharona Molina, LEILA Balance/Gait/Functional tests Balance/Special Test Scores Oswestry Low Back Score: 19
== END 2022-07-11 19:00 | disposition home or self-care (01) ==
LOC: PT 13:30
PROVIDERS: PCP Family Medicine; Referring Provider Family Medicine; Visit Provider Family Medicine
DX: M54.16 Radiculopathy, lumbar region (principal)
CPT/HCPCS: 97110; 97161

== ENCOUNTER 2022-07-16 19:28 | Emergency (ER) | payer BC, SELFPAY ==
[2022-07-16 19:29] VITALS: BP 152/110; PULSE 107; RESP 15; TEMP 36.6; O2SAT 98; BMI 34.4
--- NOTE | 2022-07-16 19:45 | CT_ITS ---
INDICATION: Kidney Stone EXAMINATION: CT Abdomen And Pelvis W/O Contrast Injection TECHNIQUE: Helically acquired images were obtained of the abdomen and pelvis without the use of IV contrast. A radiation dose optimization technique was used for this scan. Oral contrast: None. COMPARISON: 05/04/2017 FINDINGS: Evaluation of the solid organs and vascular structures is limited without intravenous contrast. Visualized lung bases: Unremarkable Liver: Diffusely hypodense consistent with fatty liver. Gallbladder: Unremarkable Spleen: Unremarkable Pancreas: Unremarkable Adrenal Glands: Unremarkable Kidneys: 1.1 cm obstructing stone at the right ureteropelvic junction with associated mild right hydronephrosis. There is an additional 8 mm stone in the right renal pelvis. Few nonobstructing punctate stones in the left kidney. Vasculature: Mild scattered aortoiliac atherosclerotic calcifications. GI Tract: Scattered diverticula throughout the colon without evidence of inflammation. Lymphadenopathy: None Peritoneum: No ascites. Bladder: Unremarkable Reproductive organs: Unremarkable Bones/Soft tissues: Mild scattered degenerative changes of the visualized spine. CT/Abdomen/Pelvis without Cont IMPRESSION: 1.1 cm obstructing stone at the right ureteropelvic junction with associated mild right hydronephrosis. There is an additional 8 mm stone in the right renal pelvis. Fatty liver. Electronically Signed: Ochoa Robles MD at 21:18 EST ,
--- NOTE | 2022-07-16 19:48 | EDS_ITS ---
HPI HPI - GI History of Present Illness Chief Complaint: Flank Pain Informant: patient Abdominal Pain/Flank Pain Onset: Today Context: Sudden Onset Timing: Continuous and Waxes and wanes Quality: Aching Location: Right Flank Current Severity: Severe Maximum Severity: Severe Worsened by: Nothing Relieved by: Nothing Nausea/Vomiting/Emesis GI Symptom: Positive for Nausea and Vomiting Diarrhea/Melena/Hematochezia GI Symptom: Negative for Diarrhea, Melena or Hematochezia Associated Symptoms Associated Symptoms: Negative for Dysuria, Frequency, Hematuria or Urgency Narrative Narrative: 46-year-old male with a history of kidney stones states he feels like he is having another 1. Started earlier today severely, has been waxing and waning, now worse and making him vomit. No fevers or chills, hematuria, dysuria, or other acute urinary symptoms. He has had multiple stones in the past but it has been several years since he had a symptomatic 1. He has required lithotripsy and ureteral stenting in the past, follows with Dr. Cullen for these issues. [facility] Medical History (Updated 07/16/22 @ 21:[address] Junior Osborn MD) Encounter for screening for COVID-19 Kidney stones Type 2 diabetes mellitus Home Medications lisinopril 5 mg tablet 5 mg PO QHS 09/19/13 [History Last Taken 09/25/13 20:00] metformin 1,000 mg tablet 1,000 mg PO DAILY 09/19/13 [History Last Taken Unknown] multivitamin 1 tab PO DAILY 09/19/13 [History Last Taken Unknown] simvastatin 20 mg tablet 20 mg PO DAILY 09/19/13 [History Last Taken Unknown] methotrexate sodium 2.5 mg tablet 20 mg PO MO 04/07/16 [History Last Taken 04/03/16] prednisone 10 mg tablet 10 mg PO PRN PRN ARTHRITIS 04/07/16 [History Last Taken Unknown] hydrocodone-acetaminophen 5-325mg 5mg-325mg 1 - 2 tab PO Q6H PRN PRN Pain #20 tabs 05/05/17 [Rx Last Taken Unknown] naproxen 500 mg tablet 500 mg PO BID pain #20 tabs 05/05/17 [Rx Last Taken Unknown] ondansetron 4 mg disintegrating tablet 4 mg PO Q8H PRN PRN Nausea ##14 05/05/17 [Rx Last Taken Unknown] tamsulosin 0.4 mg capsule 0.4 mg PO DAILY #7 caps 05/05/17 [Rx Last Taken Unknown] cyclobenzaprine 10 mg tablet 10 mg PO TID PRN muscle spasm #30 tabs 03/01/21 [Rx Last Taken Unknown] ondansetron 4 mg disintegrating tablet 8 mg PO Q8H PRN PRN Nausea #20 tabs 07/16/22 [Rx Last Taken Unknown] oxycodone-acetaminophen 5 mg-325 mg tablet 1 tab PO Q4H PRN Pain 4 days #20 TABLETS 07/16/22 [Rx Last Taken Unknown] Allergy/AdvReac Type Severity Reaction Status Date / Time No Known Allergies Allergy Verified 07/16/22 19:42 Surgical History (Updated 07/16/22 @ 19:[address] Junior Osborn MD) H/O lithotripsy Social History Smoking Status: Never smoker ROS ROS ED Constitutional Constitutional ED: Denies chills or fever(s) Eyes Eyes: Denies change in vision or diplopia ENT ENT ED: Denies rhinorrhea or sore throat Cardiovascular Cardiovascular: Denies chest pain or palpitations Respiratory/Chest Respiratory/Chest: Denies cough or dyspnea Gastrointestinal Gastrointestinal: Denies abdominal pain, diarrhea, nausea or vomiting Genitourinary Genitourinary ED: Reports flank pain; Denies dysuria or hematuria Musculoskeletal Musculoskeletal: Reports back pain; Denies neck pain Integumentary Denies abscess or rash Neurologic Neurologic: Denies headache(s), paresthesias or weakness Psychiatric Psychiatric: Denies anxiety or suicidal thoughts EXAM Physical Exam Const Vital Signs: 07/16/22 19:29 07/16/22 21:26 Temperature 97.8 F Temperature Source Temporal Pulse Rate 107 H 84 Respiratory Rate 15 18 Blood Pressure 152/110 H Blood Pressure Mean 124 Pulse Ox 98 93 Oxygen Delivery Method Room Air Room Air Positive well nourished and well developed General Appearance ED: well developed and NAD HEENT Reports moist mucous membranes normocephalic and atraumatic Eyes PERRL and EOMs intact bilaterally Neck full ROM and supple Resp normal respiratory effort and clear to auscultation bilaterally Cardio regular rate, regular rhythm and no murmurs GI non-tender and non-distended Auscultation: normoactive bowel sounds Palpation: soft Back/Spine General Back: CVA tenderness right and other FROM Extremity normal to inspection General Extremety ED: Negative for edema, pulses abnormal or tenderness General Extremity: Negative for edema or pulses abnormal Neuro oriented x3, CN's II-XII intact bilaterally and no sensory deficits noted Sensorium / Orientation: awake and alert Motor Exam: strength 5/5 throughout Skin no rashes or lesions noted and no wounds MDM MDM MDM Narrative Medical decision making narrative: Patient was treated with morphine, Toradol, Zofran, he felt much better on reevaluation. Symptoms are well controlled. He appears well. I reviewed his CT images, he does have a large proximal ureteral stone and an additional nonobstructing stone in the right renal pelvis. My interpretation of the CT agrees with that of the radiologist. Given the size of the stone, I suspect he will need to follow-up with urology expeditiously. For now symptom control as an outpatient, and he will follow-up after the weekend. We discussed reasons to return. Lab Data Attestation: I reviewed the patient's lab results. Labs: Laboratory Results - last 24 hr 07/16/22 19:57 Urine Color Yellow Urine Clarity Clear Urine pH 6.0 Ur Specific Grimes 1.015 Urine Protein 15 H Urine Glucose (UA) 1000 H Urine Ketones 15 H Urine Occult Blood 25 H Urine Nitrite Negative Urine Bilirubin Negative Urine Urobilinogen Normal Ur Leukocyte Esterase Negative Urine RBC 0-5 SEEN Urine WBC 0 SEEN Ur Squamous Epith Cells 0 SEEN Urine Bacteria 0 SEEN Urine Mucus 0 SEEN Radiography Diagnostic Testing: Clinical Impression(s) from Imaging Studies Abdomen/Pelvis CT 07/16/22 19:45 IMPRESSION: 1.1 cm obstructing stone at the right ureteropelvic junction with associated mild right hydronephrosis. There is an additional 8 mm stone in the right renal pelvis. Fatty liver. Electronically Signed: Ochoa Robles MD at 21:18 EST , Discharge Plan Triage Chief Complaint: Flank Pain ED Provider: Junior Osborn Dx/Rx/DC Orders Clinical Impression: Renal colic on right side, Ureterolithiasis Instructions: ED Kidney Stone w/ Colic Prescriptions: New oxycodone-acetaminophen [oxycodone-acetaminophen] 5-325 mg tablet 1 tab PO Q4H PRN (Reason: Pain) 4 Days Qty: 20 0RF ondansetron [ondansetron] 4 mg tablet,disintegrating 8 mg PO Q8H PRN PRN (Reason: Nausea) Qty: 20 0RF No Action cyclobenzaprine 10 mg tablet 10 mg PO TID PRN (Reason: muscle spasm) Qty: 30 0RF Rx Instructions: only AFTER work hours on work days simvastatin 20 MG tablet 20 mg PO DAILY Label Comments: CHOLESTEROL metformin 1,000 MG tablet 1,000 mg PO DAILY Label Comments: DIABETES lisinopril 5 MG tablet 5 mg PO QHS Label Comments: BLOOD PRESSURE multivitamin 1 TABLET tablet 1 tab PO DAILY Label Comments: VITAMIN methotrexate sodium 2.5 MG tablet 20 mg PO MO prednisone 10 MG tablet 10 mg PO PRN PRN (Reason: ARTHRITIS) hydrocodone-acetaminophen 1 TABLET tablet 1 - 2 tab PO Q6H PRN PRN (Reason: Pain) Qty: 20 0RF tamsulosin 0.4 MG capsule 0.4 mg PO DAILY Qty: 7 0RF ondansetron 4 MG tablet,disintegrating 4 mg PO Q8H PRN PRN (Reason: Nausea) Qty: 14 0RF naproxen 500 MG tablet 500 mg PO BID Qty: 20 0RF Primary Care Provider: Tessa Landrum Referrals: Tessa Landrum MD [Primary Care Provider] - Biju Cullen MD [Med Staff - Active Staff] - As soon as possible Disposition Disposition: Home, Self Care
[2022-07-16 20:03] LABS: Bacteria 0 SEEN /hpf (None Seen); Mucous, Urine 0 SEEN /hpf (<or=2+); Squamous Epithelial Cells - UA 0 SEEN /hpf (0-5); White Blood Cells 0 SEEN /hpf (0-5)
[2022-07-16] MEDS: Ondansetron 4 MG/2 ML Vial IV (20:04)
[2022-07-16 20:08] LABS: Color, Urine Yellow (Yellow); Glucose, Dipstick 1000 mg/dl (Normal); Ketone-Dipstick 15 mg/dl (Negative); Leukocyte Esterase-Dipstick Negative /ul (Negative); Nitrite-Dipstick Negative (Negative); Occult Blood-Urine 25 /ul (Negative); Protein-Dipstick 15 mg/dl (Negative); Specific Gravity, Urine 1.015 (1.002-1.030); Urine Bilirubin Dipstick Negative (Negative); Urine Clarity Clear (Clear); Urine Urobilinogen Normal (Normal)
[2022-07-16] MEDS: Morphine 4 MG/ML Syringe IV (20:08)
[2022-07-16] MEDS: Ketorolac 30 MG/ML Syringe IV (20:13)
[2022-07-16 20:14] LABS: Red Blood Cells-Urine 0-5 SEEN /hpf (0-5)
[2022-07-16 21:26] VITALS: PULSE 84; RESP 18; O2SAT 93
[2022-07-16 21:40] VITALS: PULSE 80; RESP 18; O2SAT 96
== END 2022-07-16 22:30 | disposition home or self-care (01) ==
PROVIDERS: Emergency Provider Emergency Medicine; PCP Family Medicine; Visit Provider Emergency Medicine
DX: N13.2 Hydronephrosis with renal and ureteral calculous obstruction (principal); E11.9 Type 2 diabetes mellitus without complications; N23 Unspecified renal colic; R11.2 Nausea with vomiting, unspecified
CPT/HCPCS: 74176; 81001; 96374; 96375; 99283; A4216; J2405

== ENCOUNTER → 2022-08-18 | Outpatient (CLI) | payer BC, SELFPAY ==
--- NOTE | 2022-08-18 16:28 | RAD_ITS ---
EXAM: XR RIGHT HIP WITH PELVIS WHEN PERFORMED, 2 OR 3 VIEWS CLINICAL INDICATION: HIP PAIN TECHNIQUE: Two or three views of the right hip with pelvis when performed. This report was created using mSnap report generation technology. COMPARISON: None. FINDINGS: BONES/JOINTS: Unremarkable. No displaced fracture. No destructive or sclerotic lesions. Note that overlapping bowel shadows may however obscure fine detail. Sacroiliac joint is unremarkable. No widening of the pubic symphysis. The articular structures are unremarkable. SOFT TISSUES: Unremarkable. No soft tissue swelling or gas. RAD/HIP, UNI W/ Pelvis 2-3 Views IMPRESSION: No evidence of displaced pelvic or hip fracture. Electronically Signed: El Fisher MD at 23:48 EST ,
== END | disposition home or self-care (01) ==
LOC: MTRAD 16:20
PROVIDERS: PCP Family Medicine; Referring Provider Family Medicine; Visit Provider Family Medicine
DX: M25.551 Pain in right hip (principal)
CPT/HCPCS: 73502

== ENCOUNTER → 2022-08-25 | Outpatient (CLI) | payer BC, SELFPAY ==
[2022-08-25 17:54] LABS: Absolute Lymphocyte Count 1.91 X10^3/uL (0.83-4.51); Absolute Neutrophil Count 5.3 X10^3/uL (2.0-7.7); Basophil# 0.06 X10^3/uL; Basophil% 0.7 % (0-1); Eosinophil# 0.09 X10^3/uL; Eosinophils% 1.1 % (0-5); Hematocrit 43.7 % (40-54); Hemoglobin 14.7 g/dL (13.0-16.5); Lymphocyte # 1.91 X10^3/ul (0.83-4.51); Lymphocyte % 23.7 % (19-41); Mean Corp Hgb Conc 33.6 g/dL (32-36); Mean Corpuscular Hgb 30.6 pg (27.0-32.0); Mean Platelet Vol. 10.3 fl (6.2-12.0); Monocyte# 0.68 X10^3/uL; Monocyte% 8.4 % (0-10); NRBC Flagged by Analyzer 0 % (0-5); Neutrophil # 5.29 X10^3/uL (2.7-7.7); Neutrophil % 65.7 % (47-70); Platelet Count 205 K/mm3 (150-450); RBC Distribution Width SD 42.7 fl (35.1-43.9); White Blood Count 8.1 K/mm3 (4.4-11.0)
[2022-08-25 18:04] LABS: ALB/GLOB Ratio 1.2 RATIO (0.9-2.4); AST(SGOT) 12 U/L (15-37); Alanine Aminotransfer ALT/SGPT 29 U/L (16-61); Albumin, Serum 4.1 g/dL (3.2-5.0); Alkaline Phosphatase 61 U/L (45-117); Anion Gap 6 (5-15); BUN 16 mg/dL (7-18); Calcium,Total 9.3 mg/dL (8.5-10.1); Chloride 108 mmol/L (98-107); Creatinine, Serum 1.14 mg/dL (0.70-1.30); EST Glomerular Filtration Rate 73 mL/min (>60); Est Glom Filt Rate - Afr Amer 88 mL/min (>60); Globulin 3.5 g/dL (2.2-4.2); Glucose 187 mg/dL (74-106); Potassium 4.1 mmol/L (3.5-5.1); Protein, Total 7.6 g/dL (6.4-8.2); Sodium Level 140 mmol/L (136-145)
== END | disposition home or self-care (01) ==
LOC: MTLAB 15:41
PROVIDERS: PCP Family Medicine; Referring Provider Internal Medicine Rheumatology; Visit Provider Internal Medicine Rheumatology
DX: M06.00 Rheumatoid arthritis without rheumatoid factor, unspecified site (principal); E11.9 Type 2 diabetes mellitus without complications; I10 Essential (primary) hypertension; Z79.899 Other long term (current) drug therapy
CPT/HCPCS: 36415; 80053; 85025

== ENCOUNTER → 2022-11-23 | Outpatient (CLI) | payer BC, SELFPAY ==
[2022-11-23 10:16] LABS: Absolute Lymphocyte Count 1.57 X10^3/uL (0.83-4.51); Absolute Neutrophil Count 4.4 X10^3/uL (2.0-7.7); Basophil# 0.07 X10^3/uL; Eosinophil# 0.23 X10^3/uL; Eosinophils% 3.3 % (0-5); Hematocrit 48.2 % (40-54); Hemoglobin 15.6 g/dL (13.0-16.5); Lymphocyte # 1.57 X10^3/ul (0.83-4.51); Lymphocyte % 22.6 % (19-41); Mean Corp Hgb Conc 32.4 g/dL (32-36); Mean Corpuscular Hgb 30.4 pg (27.0-32.0); Mean Platelet Vol. 9.5 fl (6.2-12.0); Monocyte# 0.69 X10^3/uL; Monocyte% 9.9 % (0-10); NRBC Flagged by Analyzer 0 % (0-5); Neutrophil # 4.35 X10^3/uL (2.7-7.7); Neutrophil % 62.8 % (47-70); Platelet Count 230 K/mm3 (150-450); RBC Distribution Width CV 12.3 % (11.6-14.6); Red Blood Count 5.13 M/mm3 (4.6-6.2); White Blood Count 6.9 K/mm3 (4.4-11.0)
[2022-11-23 10:50] LABS: ALB/GLOB Ratio 0.9 RATIO (0.9-2.4); AST(SGOT) 34 U/L (15-37); Alanine Aminotransfer ALT/SGPT 105 U/L (16-61); Albumin, Serum 3.6 g/dL (3.2-5.0); Alkaline Phosphatase 60 U/L (45-117); Anion Gap 4 (5-15); BUN 13 mg/dL (7-18); BUN/Creat Ratio 11.6 RATIO (10-20); Calcium,Total 10.1 mg/dL (8.5-10.1); Chloride 107 mmol/L (98-107); Creatinine, Serum 1.12 mg/dL (0.70-1.30); EST Glomerular Filtration Rate 74 mL/min (>60); Est Glom Filt Rate - Afr Amer 90 mL/min (>60); Globulin 3.8 g/dL (2.2-4.2); Glucose 182 mg/dL (74-106); Potassium 4.9 mmol/L (3.5-5.1); Protein, Total 7.4 g/dL (6.4-8.2); Sodium Level 139 mmol/L (136-145)
== END | disposition home or self-care (01) ==
LOC: MTLAB 09:05
PROVIDERS: PCP Family Medicine; Referring Provider Internal Medicine Rheumatology; Visit Provider Internal Medicine Rheumatology
DX: M06.00 Rheumatoid arthritis without rheumatoid factor, unspecified site (principal); E11.9 Type 2 diabetes mellitus without complications; I10 Essential (primary) hypertension; Z79.899 Other long term (current) drug therapy
CPT/HCPCS: 36415; 80053; 85025

== ENCOUNTER → 2022-11-30 | Outpatient (CLI) | payer BC, SELFPAY ==
--- NOTE | 2022-11-30 07:55 | US_ITS ---
STUDY: ABDOMINAL ULTRASOUND - RIGHT UPPER QUADRANT REASON FOR VISIT: Male, 47 years old ELEVATED LIVER ENZYMES TECHNIQUE: Ultrasound evaluation of the right upper quadrant was performed with real-time and static kitchen-scale imaging. TECHNICAL QUALITY: Limited. Examination limited due to a combination of factors including obesity and bowel gas. COMPARISON: CT scan 07/16/2022. FINDINGS: Liver: The liver measures 19.4 cm. There is increased echogenicity consistent with fatty infiltration. The bile ducts are within normal limits. There is hepatic color flow. The direction of portal flow is hepatopetal. There is no demonstrated mass lesion. Gallbladder: Normal distended gallbladder. The gallbladder wall measures 2 mm. There is a negative sonographic Viveros''s sign. There is no pericholecystic fluid. There are no gallstones. Common Bile Duct (C.B.D.): The common bile duct measures 5 mm. Pancreas: Suboptimally seen, grossly negative. Right Kidney: Normal size of the right kidney. The right kidney measures 12.0 cm. Normal renal cortex. The right cortex measures 1.7 cm. There is no demonstrated renal mass or cyst. There is no right hydronephrosis. US/Liver IMPRESSION: Limited as above. Fatty liver with hepatomegaly. No acute abnormality. Electronically Signed: Uli Davenport MD at 18:32 EDT ,
== END | disposition home or self-care (01) ==
LOC: US 07:54
PROVIDERS: PCP Family Medicine; Referring Provider Internal Medicine Rheumatology; Visit Provider Internal Medicine Rheumatology
DX: R74.8 Abnormal levels of other serum enzymes (principal)
CPT/HCPCS: 76705

== ENCOUNTER → 2023-01-01 | Outpatient (CLI) | payer BC, SELFPAY ==
[2023-01-01 10:37] LABS: ALB/GLOB Ratio 0.9 RATIO (0.9-2.4); AST(SGOT) 20 U/L (15-37); Alanine Aminotransfer ALT/SGPT 47 U/L (16-61); Albumin, Serum 3.5 g/dL (3.2-5.0); Alkaline Phosphatase 69 U/L (45-117); Anion Gap 5 (5-15); BUN 14 mg/dL (7-18); BUN/Creat Ratio 12.3 RATIO (10-20); Calcium,Total 9.3 mg/dL (8.5-10.1); Chloride 106 mmol/L (98-107); Creatinine, Serum 1.14 mg/dL (0.70-1.30); EST Glomerular Filtration Rate 73 mL/min (>60); Est Glom Filt Rate - Afr Amer 88 mL/min (>60); Globulin 3.8 g/dL (2.2-4.2); Glucose 191 mg/dL (74-106); Potassium 4.4 mmol/L (3.5-5.1); Protein, Total 7.3 g/dL (6.4-8.2); Sodium Level 138 mmol/L (136-145)
== END | disposition home or self-care (01) ==
LOC: MTLAB 09:12
PROVIDERS: PCP Family Medicine; Referring Provider Internal Medicine Rheumatology; Visit Provider Internal Medicine Rheumatology
DX: M06.00 Rheumatoid arthritis without rheumatoid factor, unspecified site (principal); Z79.899 Other long term (current) drug therapy
CPT/HCPCS: 36415; 80053

== ENCOUNTER → 2023-06-05 | Outpatient (CLI) | payer BC, SELFPAY ==
--- NOTE | 2023-06-05 11:30 | CT_ITS ---
STUDY: CT ABDOMEN AND PELVIS WITH CONTRAST REASON FOR EXAM: Male, 47 years old. Right lower quadrant pain for one week. Known umbilical hernia. RADIATION DOSAGE (If Supplied By Facility): CTDIvol = ( 14.34 ) mGy, DLP = ( 1123.15 ) mGycm TECHNIQUE: Transaxial images were obtained from the dome of the diaphragm to the symphysis pubis with oral contrast. Oral and amp; IV Gastrografin and amp; 100mL Isovue-300 was administered. Sagittal and coronal images were reconstructed. Individualized dose optimization techniques were used for this CT. COMPARISON: Comparison is made with prior study dated July 16, 2022. FINDINGS: The visualized lung bases are unremarkable. The visualized portions of the heart are within normal limits. There is decreased attenuation of the liver consistent with steatosis. Normal gallbladder and extrahepatic biliary system. Normal spleen. Normal pancreas. Normal bilateral adrenal glands. 1.3 cm cyst in the upper medial pole of the right kidney. 1.9 cm cyst in the posterior midportion of the right kidney. 4 mm nonobstructive calculus in the posterior calyx of the midportion of the right kidney. 1.5 cm cyst in the posterior midportion of the left kidney. Normal visualized stomach. Normal small intestine. There are scattered colonic diverticula consistent with diverticulosis. The appendix is visualized and appears normal. There is scattered atherosclerotic calcification of the abdominal aorta, without a demonstrated aneurysm. Normal inferior vena cava. Normal retroperitoneum. Normal urinary bladder. There is a small umbilical hernia containing fat. There are mild degenerative changes of the visualized lumbar spine. CT/Abdomen/Pelvis W IV Cont ONLY IMPRESSION: Small bilateral renal cysts. Nonobstructive calculus in the right kidney. Fatty infiltration of the liver. Mild degree of sigmoid diverticulosis. Small umbilical hernia. Electronically Signed: Cornelio Maya MD at 14:56 EST ,
[2023-06-05 14:12] LABS: CREATININE FINGERSTICK < 1.0 mg/dL (0.70-1.30); EGFR FINGERSTICK > 60.0000 mL/min (>60)
== END | disposition home or self-care (01) ==
PROVIDERS: PCP Family Medicine; Referring Provider Family Medicine; Visit Provider Family Medicine
DX: R10.31 Right lower quadrant pain (principal); E11.9 Type 2 diabetes mellitus without complications; I10 Essential (primary) hypertension
CPT/HCPCS: 74177; Q9967

== ENCOUNTER → 2023-06-05 | Outpatient (CLI) | payer BC, SELFPAY ==
[2023-06-05 12:34] LABS: AST(SGOT) 16 U/L (15-37); Alanine Aminotransfer ALT/SGPT 31 U/L (16-61); Albumin, Serum 3.8 g/dL (3.2-5.0); Alkaline Phosphatase 70 U/L (45-117); Anion Gap 4 (5-15); BUN 15 mg/dL (7-18); BUN/Creat Ratio 13.2 RATIO (10-20); Bilirubin, Direct 0.16 mg/dL (0.00-0.30); Calcium,Total 9.9 mg/dL (8.5-10.1); Chloride 104 mmol/L (98-107); Cholesterol 128 mg/dL (200); Creatinine, Serum 1.14 mg/dL (0.70-1.30); EST Glomerular Filtration Rate 72 mL/min (>60); Est Glom Filt Rate - Afr Amer 88 mL/min (>60); Globulin 4.3 g/dL (2.2-4.2); Glucose 255 mg/dL (74-106); High Density Lipoprotein 46 mg/dL; Potassium 4.4 mmol/L (3.5-5.1); Protein, Total 8.1 g/dL (6.4-8.2); Sodium Level 135 mmol/L (136-145); Triglycerides 88 mg/dL; Very Low Density Lipoprotein 18 mg/dL (5-40)
[2023-06-05 12:48] LABS: Microalbumin:Creatinine Ratio 216.5 mg/g CRE (<30 mg/g CRE)
== END | disposition home or self-care (01) ==
LOC: MFPLAB 10:41
PROVIDERS: PCP Family Medicine; Visit Provider Family Medicine
DX: E11.65 Type 2 diabetes mellitus with hyperglycemia (principal)
CPT/HCPCS: 36415; 80048; 80061; 80076; 82043; 82570

== ENCOUNTER → 2024-08-26 | Outpatient (CLI) | payer OTHER, SELFPAY ==
--- NOTE | 2024-08-26 10:33 | RAD_ITS ---
EXAM: XR Left Shoulder Complete, 2 or More Views CLINICAL INDICATION: PAIN TECHNIQUE: Two or more views of the left shoulder. COMPARISON: No relevant prior studies available. FINDINGS: BONES/JOINTS: Unremarkable. No acute fracture. No dislocation. SOFT TISSUES: Unremarkable. RAD/Shoulder min 2 Views IMPRESSION: No acute fracture. Reading Location: [facility]
== END | disposition home or self-care (01) ==
LOC: MTRAD 10:33
PROVIDERS: PCP Family Medicine; Referring Provider Family Medicine; Visit Provider Family Medicine
DX: M25.512 Pain in left shoulder (principal)
CPT/HCPCS: 73030